=== PATIENT | female | born 1945 | race Caucasian/White ===

== ENCOUNTER 2020-11-26 15:20 | Inpatient (IN) | payer OTHER ==
[2020-11-26 17:44] LABS: Urine Blood Negative (Negative); Urine Glucose Negative (Negative); Urine Protein 1+ (Negative); Urine Specific Gravity 1.015 (1.005-1.030)
--- NOTE | 2020-11-26 18:23 | RAD REPORT ---
EXAM DESCRIPTION: Kierra Single View11/26/2020 6:14 pm CLINICAL HISTORY: Cough COMPARISON: none FINDINGS: The lungs appear clear of acute infiltrate. The heart is normal size IMPRESSION: No acute abnormalities displayed
[2020-11-26 18:33] LABS: Absolute Lymphocytes (CBC) 0.2 K/uL (0.7-4.9); Basophils % 0.5 % (0-1.3); Hematocrit 37.1 % (36.0-45.0); Lymphocytes % 1.6 % (15.3-44.8); MPV 7.5 fL (7.6-11.3); RBC Red Blood Cell Count 3.91 M/uL (3.86-4.86)
[2020-11-26 19:11] LABS: Blood Morphology Comment NOT SEEN (NOT SEEN); Platelet Estimate ADEQ; White Blood Cell Scan OK (OK)
[2020-11-26 19:24] LABS: Urine Bacteria >50 /HPF (<20); Urine RBC <5 /HPF (NONE SEEN)
[2020-11-26 19:29] LABS: ALT/SGPT 186 U/L (12-78); AST/SGOT 145 U/L (15-37); Albumin 3.5 g/dL (3.4-5.0); Alkaline Phosphatase 96 U/L (45-117); BUN Blood Urea Nitrogen 27 mg/dL (7-18); Bicarbonate 27 mmol/L (21-32); Bilirubin Direct 0.2 mg/dL (0-0.2); Bilirubin Total 0.5 mg/dL (0.2-1.0); Ferritin 378.5 ng/mL (8-388); Glucose Level 119 mg/dL (74-106); Lipase 119 U/L (73-393); Potassium 3.4 mmol/L (3.5-5.1); Protein, Total 7.7 g/dL (6.4-8.2); Sodium Level 138 mmol/L (136-145); Troponin (Emerg Dept Use Only) < 0.02 ng/mL (0.0-0.045)
--- NOTE | 2020-11-26 21:14 | RAD REPORT ---
EXAM DESCRIPTION: CT - Abdomen Pelvis W Contrast - 11/26/2020 8:59 pm CLINICAL HISTORY: Abdominal pain COMPARISON: none. TECHNIQUE: Computed axial tomography of the abdomen pelvis was obtained. 100 cc Isovue-300 was admin istered intravenously. Oral contrast was not requested which limits evaluation of bowel. All CT scans are performed using dose optimization technique as appropriate and may include automated exposure control or mA/KV adjustment according to patient size. FINDINGS: The liver, pancreas, adrenal and kidneys appear unremarkable. Splenic granulomata. There is no evidence of diverticulitis. Hysterectomy IMPRESSION: No acute abnormality is displayed.
--- NOTE | 2020-11-26 21:30 | ER ---
Nurse's Notes [facility] Name: Christal Mosley Age: 75 yrs Sex: Female : 1945 Arrival Date: 11/26/2020 Time: 15:23 Bed 28 Private MD: Diagnosis: Chest pain, unspecified;UTI/ Urinary tract infection, site not specified-failed outpatient therapy Presentation: 11/26 15:34 Chief complaint: Fever, SOB, headache, and intermittent fatiguesubsternal chest pain x hb 2 days. TMAX 101.3. Coronavirus screen: Client presents with at least one sign or symptom that may indicate coronavirus-19. Standard/surgical mask placed on the client. Provider contacted for isolation considerations. Ebola Screen: No symptoms or risks identified at this time. Initial Sepsis Screen: Does the patient meet any 2 criteria? No. Patient's initial sepsis screen is negative. Does the patient have a suspected source of infection? No. Patient's initial sepsis screen is negative. Risk Assessment: Do you want to hurt yourself or someone else? Patient reports no desire to harm self or others. Onset of symptoms was November 24, 2020. 15:34 Method Of Arrival: Wheelchair hb 15:34 Acuity: IGNACIO 3 hb Historical: - Allergies: 15:38 PENICILLINS; hb - Home Meds: 15:38 Lovastatin Oral [Active]; Premarin Oral [Active]; Diltiazem Oral [Active]; hb - PMHx: 15:38 Hypertentension; hb - Immunization history:: Client reports receiving the 2nd dose of the Covid vaccine, Flu vaccine is up to date. - Social history:: Smoking status: Patient denies any tobacco usage or history of. Screenin:09 Abuse screen: Denies threats or abuse. Denies injuries from another. Nutritional ld1 screening: No deficits noted. Tuberculosis screening: No symptoms or risk factors identified. Fall Risk None identified. Assessment: 17:09 General: Appears in no apparent distress. comfortable, Behavior is calm, cooperative, ld1 appropriate for age. Pain: Denies pain. Neuro: Level of Consciousness is awake, alert, obeys commands, Oriented to person, place, time, situation. Cardiovascular: Capillary refill < 3 seconds Patient's skin is warm and dry. Respiratory: Airway is patent Respiratory effort is even, unlabored, Respiratory pattern is regular, symmetrical. Respiratory: Parent/caregiver reports the patient having shortness of breath on exertion. GI: Abdomen is flat, non-distended. : Reports burning with urination, since x 3 DAYS. Began on 11/23/2020. EENT: No signs and/or symptoms were reported regarding the EENT system. Derm: No signs and/or symptoms reported regarding the dermatologic system. Musculoskeletal: No signs and/or symptoms reported regarding the musculoskeletal system. 18:01 Reassessment: Patient appears in no apparent distress at this time. Patient is alert, ld1 oriented x 3, equal unlabored respirations, skin warm/dry/pink. Patient denies pain at this time. 21:24 Pain: kg Vital Signs: 15:34 BP 118 / 50; Pulse 88; Resp 28; Temp 99; Pulse Ox 98% on R/A; Pain 2/10; hb 17:09 BP 118 / 71; Pulse 68; Resp 18; Temp 98.7(O); Pulse Ox 98% on R/A; Weight 72.57 kg; ld1 Height 5 ft. 4 in. (162.56 cm); Pain 0/10; 18:01 BP 131 / 54; Pulse 71; Resp 15; Pulse Ox 100% on R/A; ld1 18:30 BP 120 / 49; Pulse 68; Resp 20; Pulse Ox 98% on R/A; kg 18:45 BP 120 / 49; Pulse 68; Resp 20; Pulse Ox 98% on R/A; kg 19:30 BP 112 / 53; Pulse 69; Resp 20; Pulse Ox 98% on R/A; kg 20:15 BP 114 / 55; Pulse 68; Resp 20; Pulse Ox 98% on R/A; kg 21:15 BP 100 / 51; Pulse 72; Resp 20; Pulse Ox 98% ; kg 17:09 Body Mass Index 27.46 (72.57 kg, 162.56 cm) ld1 ED Course: 15:23 Patient arrived in ED. rg4 15:37 Triage completed. hb 15:38 Arm band placed on. hb 16:55 Christi Maza, RN is Primary Nurse. ld1 17:09 Patient has correct armband on for positive identification. Placed in gown. Bed in low ld1 position. Call light in reach. Side rails up X2. equipment sterilizer on. Pulse ox on. NIBP on. 17:09 No provider procedures requiring assistance completed. Patient maintains SpO2 ld1 saturation greater than 95% on room air. 17:10 [facility] kb 17:10 Betito Poon MD is Attending Physician. kb 17:29 Flu Sent. 4 18:14 CXR XRAY In Process Unspecified. EDMS 20:59 CT Abd/Pelvis - IV Contrast Only In Process Unspecified. EDMS 21:29 Shelly Snow MD is Hospitalizing Provider. kb 11/27 02:14 BMP Sent. bs2 02:14 Blood Culture Adult (2) Sent. bs2 02:14 C-Reactive Protein Sent. bs2 02:14 CBC with Diff Sent. bs2 02:14 Ferritin Sent. bs2 02:14 Lipase Sent. bs2 02:14 Lactate Sent. bs2 02:14 LFT's Sent. bs2 Administered Medications: 11/26 22:09 Drug: Aspirin Chewable Tablet 324 mg Route: PO; kg 11/27 02:14 Follow up: Response: No adverse reaction bs2 11/26 22:09 Drug: Rocephin (cefTRIAXone) 1 grams Route: IV; Rate: calculated rate; Site: left kg antecubital; 11/27 02:13 Follow up: IV Status: Completed infusion bs2 Outcome: 11/26 21:30 Decision to Hospitalize by Provider. 11/27 16:20 Patient left the ED. jd3 Signatures: Dispatcher [employer] EDMS Sarah Mccann FNP-C FNP-Mayra Cortez RN RN Ginger Chaudhari 4 Gurdeep Webster RN RN cad3 Naeem Lobo [facility] Christi Maza RN RN ld1 Elis Vinson RN RN kg Smith, Bridget RN RN bs2 Corrections: (The following items were deleted from the chart) 11/26 18:18 17:29 CORONAVIRUS+ drawn and sent. formerly [facility] EDID
--- NOTE | 2020-11-26 21:30 | EDPHYS ---
Physician Documentation [facility] Name: Christal Mosley Age: 75 yrs Sex: Female : 1945 Arrival Date: 11/26/2020 Time: 15:23 Bed 28 Private MD: ANGELIKA Physician Betito Poon HPI: 11/26 23:49 This 75 yrs old Female presents to ER via Wheelchair with complaints of kb Fever, Chest Pain, Fatigue. 23:49 The patient or guardian reports cough, that is intermittent, described as mild, with no kb sputum, difficulty breathing, flu symptoms, low-grade fever, myalgias. Onset: The symptoms/episode began/occurred 2 day(s) ago. Severity of symptoms: At their worst the symptoms were moderate, in the emergency department the symptoms are unchanged. Modifying factors: The symptoms are alleviated by nothing, the symptoms are aggravated by nothing. Associated signs and symptoms: Pertinent positives: chest pain, fever, Pertinent negatives: diarrhea, ear ache, nausea, rhinorrhea, sore throat, vomiting. The patient has not experienced similar symptoms in the past. The patient has not recently seen a physician. 23:52 Patient reports fever shortness of breath headache and fatigue for 2 days. This morning kb he had chest pain which prompted her ER visit. Reports she is also had burning with urination and urinary frequency since Monday. Had urine tested at Dr. Green's office on Monday started on Macrobid for UTI, but symptoms not improving.. Historical: - Allergies: 15:38 PENICILLINS; hb - Home Meds: 15:38 Lovastatin Oral [Active]; Premarin Oral [Active]; Diltiazem Oral [Active]; hb - PMHx: 15:38 Hypertentension; hb - Immunization history:: Client reports receiving the 2nd dose of the Covid vaccine, Flu vaccine is up to date. - Social history:: Smoking status: Patient denies any tobacco usage or history of. ROS: 23:47 Neuro: Negative for headache, weakness, numbness, tingling, and seizure. kb 23:47 Constitutional: Positive for body aches, chills, fatigue, fever, malaise. 23:47 Cardiovascular: Positive for chest pain, Negative for edema, orthopnea, palpitations, paroxysmal nocturnal dyspnea. 23:47 Respiratory: Positive for cough, shortness of breath, Negative for dyspnea on exertion, hemoptysis, orthopnea, pleurisy, sputum production, wheezing. 23:47 Abdomen/GI: Positive for abdominal pain, of the suprapubic area. 23:47 : Positive for urinary frequency, burning with urination. 23:47 All other systems are negative. Exam: 23:49 Constitutional: This is a well developed, well nourished patient who is awake, alert, kb and in no acute distress. Head/Face: Normocephalic, atraumatic. ENT: Moist Mucous membranes Cardiovascular: Regular rate and rhythm with a normal S1 and S2. No gallops, murmurs, or rubs. No pulse deficits. Respiratory: Respirations even and unlabored. No increased work of breathing, no retractions or nasal flaring. Abdomen/GI: Soft, non-tender. No distention Skin: Warm, dry with normal turgor. Normal color. MS/ Extremity: Pulses equal, no cyanosis. Neurovascular intact. Full, normal range of motion. Neuro: Awake and alert, GCS 15, oriented to person, place, time, and situation. Moves all extremities. Normal gait. Psych: Awake, alert, with orientation to person, place and time. Behavior, mood, and affect are within normal limits. Vital Signs: 15:34 BP 118 / 50; Pulse 88; Resp 28; Temp 99; Pulse Ox 98% on R/A; Pain 2/10; hb 17:09 BP 118 / 71; Pulse 68; Resp 18; Temp 98.7(O); Pulse Ox 98% on R/A; Weight 72.57 kg; ld1 Height 5 ft. 4 in. (162.56 cm); Pain 0/10; 18:01 BP 131 / 54; Pulse 71; Resp 15; Pulse Ox 100% on R/A; ld1 18:30 BP 120 / 49; Pulse 68; Resp 20; Pulse Ox 98% on R/A; kg 18:45 BP 120 / 49; Pulse 68; Resp 20; Pulse Ox 98% on R/A; kg 19:30 BP 112 / 53; Pulse 69; Resp 20; Pulse Ox 98% on R/A; kg 20:15 BP 114 / 55; Pulse 68; Resp 20; Pulse Ox 98% on R/A; kg 21:15 BP 100 / 51; Pulse 72; Resp 20; Pulse Ox 98% ; kg 17:09 Body Mass Index 27.46 (72.57 kg, 162.56 cm) ld1 MDM: 17:10 Patient medically screened. kb 22:55 Data reviewed: vital signs, nurses notes. Data interpreted: Pulse oximetry: on room air kb is 98 %. Interpretation: normal. Counseling: I had a detailed discussion with the patient and/or guardian regarding: the historical points, exam findings, and any diagnostic results supporting the discharge/admit diagnosis, lab results, radiology results, the need for further work-up and treatment in the hospital. Physician consultation: Richard Snow MD was contacted at 21:30, regarding admission, to the telemetry unit. patient's condition, and will see patient in inpatient room. 11/26 17:17 Order name: Flu; Complete Time: 18:25 kb 11/26 17:18 Order name: BMP 11/26 17:18 Order name: Blood Culture Adult (2) 11/26 17:18 Order name: C-Reactive Protein 11/26 17:18 Order name: CBC with Diff 11/26 17:18 Order name: Ferritin 11/26 17:18 Order name: LFT's 11/26 17:18 Order name: Lactate 11/26 17:18 Order name: Lipase 11/26 17:18 Order name: PT-INR; Complete Time: 18:42 kb 11/26 17:18 Order name: Procalcitonin; Complete Time: 19:26 kb 11/26 17:18 Order name: Ptt, Activated; Complete Time: 18:42 kb 11/26 17:18 Order name: Troponin (emerg Dept Use Only); Complete Time: 19:30 kb 11/26 17:18 Order name: Urine Microscopic Only; Complete Time: 19:26 kb 11/26 17:19 Order name: Basic Metabolic Panel; Complete Time: 19:30 EDMS 11/26 17:19 Order name: Blood Culture EDNM 11/26 17:19 Order name: C-Reactive Protein; Complete Time: 19:30 EDMS 11/26 17:19 Order name: CBC with Automated Diff; Complete Time: 19:26 EDMS 11/26 17:19 Order name: Ferritin; Complete Time: 19:30 EDMS 11/26 17:19 Order name: Liver (Hepatic) Function; Complete Time: 19:30 EDMS 11/26 17:19 Order name: Lactate; Complete Time: 18:35 EDMS 11/26 17:19 Order name: Lipase; Complete Time: 19:30 EDMS 11/26 17:44 Order name: Urine Dipstick-Ancillary; Complete Time: 17:52 EDMS 11/26 19:11 Order name: CBC Smear Scan EDMS 11/26 19:19 Order name: SARS-COV-2 RT PCR; Complete Time: 19:26 EDMS 11/26 19:25 Order name: Urine Culture EDMS 11/27 00:33 Order name: Troponin I; Complete Time: 00:36 EDMS 11/27 05:23 Order name: Troponin I; Complete Time: 13:25 EDMS 11/27 05:24 Order name: CBC with Automated Diff; Complete Time: 13:25 EDMS 11/26 15:39 Order name: EKG; Complete Time: 15:40 hb 11/26 15:39 Order name: EKG - Nurse/Tech; Complete Time: 15:39 hb 11/26 17:18 Order name: CXR XRAY; Complete Time: 18:25 kb 11/26 17:18 Order name: Cardiac monitoring; Complete Time: 17:21 kb 11/26 17:18 Order name: Droplet/Contact Precautions; Complete Time: 17:21 kb 11/26 17:18 Order name: IV Start; Complete Time: 18:00 kb 11/26 17:18 Order name: Labs collected and sent; Complete Time: 18:00 kb 11/26 17:18 Order name: O2 Per Protocol; Complete Time: 17:21 kb 11/26 17:18 Order name: O2 Sat Monitoring; Complete Time: 17:21 kb 11/26 17:18 Order name: Urine Dipstick-Ancillary (obtain specimen); Complete Time: 17:44 kb 11/26 20:32 Order name: CT Abd/Pelvis - IV Contrast Only; Complete Time: 21:18 kb 11/27 05:44 Order name: Basic Metabolic Panel; Complete Time: 13:25 EDMS 11/27 08:11 Order name: Liver (Hepatic) Function; Complete Time: 13:25 EDMS Administered Medications: 22:09 Drug: Aspirin Chewable Tablet 324 mg Route: PO; kg 11/27 02:14 Follow up: Response: No adverse reaction bs2 11/26 22:09 Drug: Rocephin (cefTRIAXone) 1 grams Route: IV; Rate: calculated rate; Site: left kg antecubital; 11/27 02:13 Follow up: IV Status: Completed infusion bs2 Disposition Summary: 11/26/20 21:30 Hospitalization Ordered Hospitalization Status: Inpatient Admission kb Provider: Shelly Snow Condition: Stable kb Problem: new kb Symptoms: are unchanged kb Bed/Room Type: Standard kb Location: Telemetry/MedSurg (Inpatient)(11/27/20 15:29) eb Room Assignment: 224(11/27/20 15:29) eb Diagnosis - Chest pain, unspecified kb - UTI/ Urinary tract infection, site not specified - failed outpatient therapy kb Forms: - Medication Reconciliation Form kb - SBAR form kb Addendum: 11/29/2020 06:56 Co-signature as Attending Physician, Betito Poon MD I agree with the assessment and c jordan plan of care. Signatures: Dispatcher [employer] EDNM Sarah Mccann, THIRD LOADER-C THIRD LOADER-Ckb Betito Poon MD MD cha Garcia, Cindy, RN RN cg Mayra Hamilton, RN RN Maryan Estrella Kristen, JESUS RN Gabriela Lawson RN bs2 Corrections: (The following items were deleted from the chart) 11/26 18:18 17:11 CORONAVIRUS+BRZ ordered. EDNM EDNM 22:15 21:30 Telemetry/MedSurg (Inpatient) kb cg 22:15 21:30 kb cg 11/27 15:29 11/26 22:15 [facility] ER HOLD cg eb 11/27 15:29 11/26 22:15 ERHOLD- cg eb
[2020-11-26] MEDS ORDERED: ASPIRIN 81 MG CHEWABLE TABLET ONE (22:24)
[2020-11-26] MEDS ORDERED: CEFTRIAXONE/SWI 1gm 1 GM/10 ML SYR ONE (22:25)
[2020-11-26] MEDS ORDERED: ACETAMINOPHEN 500 MG TAB PO PRN (22:25)
[2020-11-27 05:10] LABS: Absolute Lymphocytes (CBC) 0.4 K/uL (0.7-4.9); Basophils % 0.3 % (0-1.3); Hematocrit 31.9 % (36.0-45.0); MPV 7.3 fL (7.6-11.3); RBC Red Blood Cell Count 3.38 M/uL (3.86-4.86)
[2020-11-27 05:16] LABS: Potassium 3.7 mmol/L (3.5-5.1)
[2020-11-27 05:21] VITALS: BMI 17.2
[2020-11-27 08:08] LABS: ALT/SGPT 155 U/L (12-78); AST/SGOT 108 U/L (15-37); Albumin 2.8 g/dL (3.4-5.0); Alkaline Phosphatase 78 U/L (45-117); Bilirubin Direct < 0.1 mg/dL (0-0.2); Bilirubin Total 0.2 mg/dL (0.2-1.0); Protein, Total 6.5 g/dL (6.4-8.2)
[2020-11-27] MEDS: ASPIRIN EC 81 MG TAB PO SCH (09:00)
[2020-11-27] MEDS ORDERED: CEFTRIAXONE 1 GM/NS 50 ML 1 GM/50 ML BAG IV SCH (09:00)
[2020-11-27] MEDS: CEFTRIAXONE/SWI 1gm 1 GM/10 ML SYR IV SCH ×2 (09:00→20:46)
[2020-11-27] MEDS: NA CHLORIDE 0.9% 1,000 ML IV SCH ×2 (09:25→18:49)
[2020-11-27] MEDS ORDERED: NA CHLORIDE 0.9% 50 ML ONE (09:27)
[2020-11-27] MEDS ORDERED: CEFTRIAXONE/SWI 1gm 1 GM/10 ML SYR ONE (09:27)
[2020-11-27] MEDS ORDERED: ASPIRIN EC 81 MG TAB PO ONE (09:27)
[2020-11-27] MEDS ORDERED: NA CHLORIDE 0.9% 1,000 ML ONE (09:27)
[2020-11-27 21:33] VITALS: O2SAT 95
[2020-11-28] MEDS: NA CHLORIDE 0.9% 1,000 ML IV SCH (06:46)
[2020-11-28 08:12] VITALS: BP 127/60; TEMP 97.9
[2020-11-28] MEDS: CEFTRIAXONE/SWI 1gm 1 GM/10 ML SYR IV SCH (09:22)
[2020-11-28] MEDS: ASPIRIN EC 81 MG TAB PO SCH (09:22)
--- NOTE | 2020-11-28 11:15 | DS ---
Date of Discharge: 11/28/2020 Disposition: Discharged to go home. Physical Examination: HEENT: Unremarkable. LUNGS: Clear to auscultation. HEART: Heart sounds normal. ABDOMEN: Soft. Bowel sounds normal. No guarding, rigidity, tenderness, or distention. There is no flank tenderness. EXTREMITIES: No leg edema. Discharge Medications And Instructions: 1.Continue all prior home medications. 2.Take Levaquin 500 mg daily for 2 weeks. 3.Follow up at my office on 12/02/2020 at 9 a.m. Final Diagnoses: 1.Acute pyelonephritis. 2.Hypertension. 3.Hyperlipidemia. Hospital Course: This is a 75-year-old female patient, admitted to the hospital with acute pyeloneph ritis problem. Please see dictated H and P for more information. After patient was evaluated in the ER, she was admitted to the hospital. Empiric antibiotic ceftriaxone was started. The patient fail ed outpatient antibiotic therapy and her symptoms got worse, so she was admitted to the hospital afte r she was evaluated in the emergency room. Her blood culture remained negative. Urine culture has n ot grown any specific bacteria so far and I did talk to her about all these details and information. There is a good possibility that her culture may not grow any specific bacteria because she was on a ntibiotic therapy as outpatient prior to her admission to the hospital, even though it did not take c are of her infection it may mass the growth on the culture. Clinically, she is feeling much better, does not have any pain in the flank region like what she did when she came in, had left posterior fla nk pain and tenderness that has resolved completely. Does not have any dysuria or hematuria. Has a good appetite. She is afebrile, hemodynamically stable, and tells me that she is ready to go home. Medically, she is stable for discharge and I did inform her that I will continue to follow up on the urine culture results. If something grows that may require change in the antibiotic therapy, then we will need to contact her and she understands that. ANIBAL/MODL Voice ID: [id number] Report ID: [id number]
--- NOTE | 2020-11-30 08:30 | HP ---
Date of Admission: 11/26/2020 Chief Complaint: Fever, chills, chest pain. History Of Present Illness: This is a 75-year-old very pleasant female patient, who started to have urinary frequency, urgency, and burning on urination Monday of this week and she went to see her gyne cologist, Dr. Green. She had urinalysis test done at her office and she was started on antibiotic on Monday and she says that as of next day, she started to have fever, chills. Her symptoms continu ed and she continued to use antibiotic as prescribed, but was not improving and yesterday, she had so me chest pain and she was advised to come to emergency room. After she was evaluated in the ER, she was admitted to the hospital. When I saw her this morning, she was still in the emergency room and w jessica she describes as chest pain, the location of that is all across upper abdominal area, lower rib c age area. The patient's pain has resolved after her presentation to the emergency room. Allergies: TO PENICILLIN. Medications: Aspirin 81 mg daily, Caltrate plus D 2 times a day, Prolia injection every 6 month, Car dizem CD 240 mg p.o. daily, losartan 25 mg p.o. daily, lovastatin 20 mg p.o. daily in the evening, ma gnesium oxide 250 mg p.o. daily. Review of Systems: Constitutional: As mentioned above. Genitourinary: As mentioned above. All other systems reviewed and negative. Past Medical History: Significant for impaired fasting glucose, hypertension, hyperlipidemia, caroti d artery stenosis, bilateral diverticulosis, osteoporosis. Past Surgical History: Tonsillectomy and hysterectomy. Family History: Father had lung cancer and problem with alcoholism. Mother hypertension, rheumatoid arthritis, and lupus. Social History: Negative for smoking and alcohol use. Physical Examination: Vital Signs: Temperature 97.9, pulse 61, respiratory rate 14, blood pressure 102/57, oxygen saturati on 98%. Height 5 feet 4 inches. Weight 100 pounds. General: Awake, alert, oriented, not in distress. HEENT: Head atraumatic, normocephalic. Conjunctivae nonerythematous. Sclerae white. Mouth, no thr ush or edema noted. Ears/Nose, no mass, lesion, discharge noted. Neck: Supple. No JVD, lymph nodes, bruit, thyromegaly noted. Lungs: Bilateral good equal air entry. Clear to auscultation. No rhonchi. No rales. Heart: Normal heart sounds, no murmur or gallop. Abdomen: Soft, bowel sounds normal. No guarding, rigidity, distention. No hepatosplenomegaly. No bruit. The patient does have left posterior flank tenderness. Extremities: No leg edema. No calf tenderness. Skin: No rash, ulcer, cellulitis. Lymphatics: No lymph node enlargement in neck, supraclavicular, infraclavicular region. Neuro: No focal neurological deficit. Chest: Unremarkable. External Genitalia: Deferred. Rectal: Deferred. Laboratory Data: White count 12.8, hemoglobin 12.6, platelets 185, and this was yesterday's blood wo rk. Today, white count 6.3, hemoglobin 11.1, platelets 161. Yesterday, sodium 138, potassium 3.4, c hloride 101, bicarb 27, BUN 27, creatinine 0.89, glucose 119, lactic acid 1.7, procalcitonin 0.63. L iver function tests, AST 145, ALT 186. Troponin less than 0.02. CRP 184. Urinalysis; trace leukocy te esterase 20-50, wbc's more than 50, more than 50 bacteria, and 1+ protein. COVID-19 test negative . Influenza A and B test negative. Today, sodium 141, potassium 3.7, chloride 107, bicarb 24, BUN 0 .7, glucose 96. CAT scan of the abdomen and pelvis, no acute intra-abdominal changes. Chest x-ray, no acute cardiopulmonary changes. Impression: 1.Acute pyelonephritis. 2.Hypokalemia. 3.Anemia, unspecified. 4.Hypertension. 5.Hyperlipidemia. 6.Impaired fasting glucose. 7.Diverticulosis. 8.Osteoporosis. Plan: Admit the patient to hospital for further evaluation and management of this problem. The shelly ent is appropriate for inpatient and is expected to spend 2 midnight in hospital. We will go ahead a nd continue IV fluid as per order. Continue patient on antibiotics, ceftriaxone, which was started i n emergency room. We will continue that. We will follow up on culture results. Culture may or may not grow any specific bacteria because patient was already taking oral antibiotics on outpatient basi s. Details and plan of treatment discussed with the patient. Her liver function tests were elevated yesterday. We will follow up on that again today. ANIBAL/FARHAN Voice ID: [id number]
--- NOTE | 2020-12-01 12:43 | EKG ---
Test Date: 2020-11-26 Test Time: 23:57:31 Body Masker: LIZETH MEASUREMENT RESULTS: Intervals: Rate: 62 WV: 168 QRSD: 68 QT: 420 QTc: 426 [place]: P: 73 WV: 168 QRS: 67 T: 69 INTERPRETIVE STATEMENTS: Normal sinus rhythm Normal ECG Compared to ECG 11/26/2020 15:41:46 No significant changes Electronically Signed On 12-01-20 12:38:07 CDT by César Love
== END 2020-11-28 11:17 | disposition home or self-care (01) | DRG 690 ==
LOC: ER 15:20 → ERHOLD 22:07 → 2ND 11-27 15:40
PROVIDERS: ADMIT Internal Medicine; ATTEND Internal Medicine
DX: N10 Acute pyelonephritis (principal); I10 Essential (primary) hypertension; E78.5 Hyperlipidemia, unspecified; E87.6 Hypokalemia; D64.9 Anemia, unspecified; K57.90 Diverticulosis of intestine, part unspecified, without perforation or abscess without bleeding; M81.0 Age-related osteoporosis without current pathological fracture; R79.89 Other specified abnormal findings of blood chemistry; R73.01 Impaired fasting glucose; Z88.0 Allergy status to penicillin; Z79.899 Other long term (current) drug therapy; Z90.710 Acquired absence of both cervix and uterus; Z79.82 Long term (current) use of aspirin; Z20.822 Contact with and (suspected) exposure to COVID-19
CPT/HCPCS: 36415; 71045; 74177; 80048; 80076; 81001; 81003; 81015; 82728; 83605; 83690; 84145; 84484; 85025; 85610; 85730; 86140; 87040; 87077; 87086; 87088; 87186; 87804; 93005; 96365; 96366; 99285; J0696; J7030; U0003

== ENCOUNTER 2024-08-27 08:15 | Observation (INO) | payer OTHER ==
--- OUTSIDE RECORDS SUMMARY | 2024-08-27 08:20 | XMS REPORT | Continuity of Care Document ---
Author Name Unknown Address [address] [facility] [address] [place] [address] [facility] Address [address] [place] [address] Care Team Providers Care Art Historian Name Role Phone PCP, PATIENT DOES NOT HAVE A Primary Care Physic alice Unavailable YOHAN DUKES Attending Clinician Unavail able Yohan Dukes MD Attending Clinician [phone] [email or web address] Attending Clinician Unavaila ble Vaccine, [facility] Attending Clinician Unavailable Grabiel Mendez DO Attending Clinician GRABIEL MENDEZ Attending Clinician Unavail able Nurse, Awais Pob Immunization Attending Clinician Unavailable SAM HART Attending Clinician Unavailable Therapy, [facility] Covid Infusion Attending Clinician Unavailable Sam Hart MD Attending Clinician [phone] Doctor Unassigned, Mena Attending Clinician U navailable [email or web address] Admitting Clinician Unavaila ble Payers Payer Name Policy Type Policy Number Effective Date Expirati on Date Source [facility] MEDICARE ADVANTAGE Medicare [id number] 2023 00:00:00 [facility] (MEDICARE REPLACEMENT/ADVANTA GE - PPO) [id number] Problems Condition Name Condition Details Condition Category Status Onset Date Resolution Date Last Treatment Date Treating Clinician Comments Source Parkinson' s disease Parkinson' s Disease Problem Active 06-03 00:00: 00 [facility] Arthritis Arthritis Problem Active 06-03 00:00: 00 [facility] Osteoporos is Osteoporos is Problem Active 06-03 00:00: 00 [facility] MCI (mild cognitive impairment ) MCI (mild cognitive impairment ) Disease Active 12-12 00:00: 00 [facility] Anxiety Anxiety Disease Active 10-23 00:00: 00 [facility] 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 Active 10-23 00:00: 00 [facility] 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 00:00: 00 [facility] Hyperlipid emia Hyperlipid emia Disease Active 10-23 00:00: 00 [facility] Lumbar radiculopa thy Lumbar radiculopa thy Disease Active 10-23 00:00: 00 [facility] Amnesia Amnesia Disease Active 10-23 00:00: 00 [facility] Hypertensi on Hypertensi on Disease Active 10-23 00:00: 00 [facility] Screening mammograph y Screening Mammograph y Problem Active 05-19 00:00: 00 [facility] Screening for malignant neoplasm of colon Screening for Malignant Neoplasm of Colon Problem Active 05-19 00:00: 00 [facility] Urinary tract infectious disease Urinary Tract Infectious Disease Problem Active 02-01 00:00: 00 [facility] Lateral cystocele Lateral Cystocele Problem Active 06-29 00:00: 00 [facility] Atrophic vaginitis Atrophic Vaginitis Problem Active 06-29 00:00: 00 [facility] Bone density finding Bone Density Finding Problem Active 06-29 00:00: 00 [facility] Gynecologi nalini examinatio n abnormal Gynecologi nalini Examinatio n Abnormal Problem Active 06-29 00:00: 00 [facility] R41.3 - OTHER AMNESIA R27 - OTHER LACK O R41.3 - OTHER AMNESIA R27 - OTHER LACK O Active [facility] [place] Diagnosis Active 2023-07-24 15:20:00 Reinier Romero M54.16 - RADICULOPA THY, LUMBAR REGION R4 M54.16 - RADICULOPA THY, LUMBAR REGION R4 Active [facility] [place] Diagnosis Active 2023-08-22 13:25:00 Reinier Romero Abnormal gynecologi nalini examinatio n Abnormal gynecologi nalini examinatio n Disease Resolve d 06-28 00:00: 00 2024-03-05 00:00:00 2024-03-05 11:00:36 Reinier Hayes Allergies, Adverse Reactions, Alerts Allergy Name Allergy Type Status Severity Reaction(s) Onset Date Inactive Date Treating Clinician Comments Source PENICILL INS Drug Class Active Hives 01-30 00:00: 00 [facility] Penicill ins Propensi ty to adverse reaction s Active Hives 01-30 00:00: 00 [facility] Penicill ins Drug Intolera nce Active Hives, Rash 01-30 00:00: 00 Reinier Hayes PENICILL INS Drug Class Active Low Hives 01-30 00:00: 00 [facility] NO KNOWN ALLERGIE S Drug Class Active [facility] ALLERGIE S NOT ON FILE SYSTEMIC Active [facility] penicill in G benzathi ne penicill in G benzathi ne Active Skin irritation (disorder) Reinier Romero PENICILL IN Allergy to substanc e Active Hives [facility] Social History Social Habit Start Date Stop Date Quantity Comments Source Gender identity 2023-07-29 08:19:42 Identifies as female gender (finding) Beverly Hayes Sexual orientation [facility] ASSERTION Possible Beverly Hayes Alcoholic beverage intake 2024-06-04 00:00:00 2024-06-04 00:00:00 Lifetime non-drinker (finding) Beverly Hayes History of Social function 2024-06-04 00:00:00 2024-06-04 00:00:00 [facility] Tobacco use and exposure 2024-03-05 00:00:00 2024-03-05 00:00:00 Smokeless tobacco non-user [facility] Cigarettes smoked current (pack per day) - Reported 2024-03-05 00:00:00 2024-03-05 00:00:00 [facility] Cigarette pack-years 2024-03-05 00:00:00 2024-03-05 00:00:00 [facility] History of tobacco use 1967-09-06 00:00:00 Passive smoker [facility] Sex Assigned At 1945 00:00:00 1945 00:00:00 [facility] Smoking Status Start Date Stop Date Source Unknown if ever smoked [facility] Never Smoker [facility] Ex-smoker 2024-03-05 00:00:00 2024-03-05 00:00:00 [facility] Medications Ordered Medication Name Filled Medication Name Start Date Stop Date Current Medication? Ordering Clinician Indication Dosage Frequency Signature (SIG) Comments Components Source rivastigmin e (Exelon) 9.5 MG/24HR rivastigmin e (Exelon) 9.5 MG/24HR 06-04 00:00: 00 06-04 23:59 :00 No 1{patch } QD Place 1 patch over 24 hours on the skin 1 time each day. [facility] guru [place] [facility] mirtazapine (Remeron) 15 MG tablet mirtazapine (Remeron) 15 MG tablet 2023-05 2-30 00:00: 00 Yes [id number] 15mg TAKE 1 TABLET BY MOUTH EVERYDAY AT BEDTIME [facility] rivastigmin e (Exelon) 4.6 MG/24HR rivastigmin e (Exelon) 4.6 MG/24HR 2023-05 1-20 00:00: 00 06-04 00:00 :00 No 1{patch } QD PLACE 1 PATCH OVER 24 HOURS ON THE SKIN 1 TIME EACH DAY. [facility] rivastigmin e (Exelon) 4.6 MG/24HR rivastigmin e (Exelon) 4.6 MG/24HR 2023-05 0 00:00: 00 03-27 00:00 :00 No 1{patch } QD Place 1 patch over 24 hours on the skin 1 time each day. Reinier Hayes rivastigmin e 4.6 mg/24 hour transdermal patch rivastigmin e 4.6 mg/24 hour transdermal patch 8 00:00: 00 No rivastigmi ne 4.6 mg/24 hour transderma l patch [facility] galantamine ER (Razadyne ER) 8 MG 24 hr capsule galantamine ER (Razadyne ER) 8 MG 24 hr capsule 7-13 00:00: 00 03-05 00:00 :00 No 8mg TAKE 1 CAPSULE BY MOUTH AT BEDTIME Reinier Hayes mirtazapine (Remeron) 15 MG tablet mirtazapine (Remeron) 15 MG tablet 11-15 00:00: 00 05-06 00:00 :00 No [id number] 15mg TAKE 1 TABLET BY MOUTH EVERYDAY AT BEDTIME Reinier Hayes cholecalcif juni (Vitamin D-3) 50 MCG (2000 UT) tablet cholecalcif juni (Vitamin D-3) 50 MCG (2000 UT) tablet 10-23 11:57: 06 Yes 2000U QD Take 2,000 Units by mouth 1 time each day. Reinier Hayes Estrogens Conjugated (Premarin) 0.625 MG/GM cream cream Estrogens Conjugated (Premarin) 0.625 MG/GM cream cream 10-23 11:57: 06 Yes QD Insert into the vagina 1 time each day. Reinier Hayes Multiple Vitamin (multivitam in) capsule Multiple Vitamin (multivitam in) capsule 10-23 11:57: 06 Yes 1{capsu le} QD Take 1 capsule by mouth 1 time each day. Reinier Hayes lovastatin (Mevacor) 10 MG tablet lovastatin (Mevacor) 10 MG tablet 10-23 11:57: 06 Yes 10mg Take 10 mg by mouth at bedtime. Reinier Hayes [facility] ([facility]) [facility]) 10-23 11:57: 06 03-05 00:00 :00 No 1{capsu le} QD Take 1 capsule by mouth 1 time each day. [facility] mirtazapine (Remeron) 15 MG tablet mirtazapine (Remeron) 15 MG tablet 10-23 00:00: 00 11-15 00:00 :00 No [id number] 15mg Take 1 tablet by mouth at bedtime. [facility] g[facility] Epic galantamine (Razadyne) 4 MG tablet galantamine (Razadyne) 4 MG tablet 10-17 00:00: 00 10-23 00:00 :00 No 4mg Q.5D TAKE 1 TABLET BY MOUTH TWICE A DAY FOR 30 DAYS [facility] guru [place] Epic galantamine 8 mg oral capsule, extended release 08-23 16:59: 00 Yes 8 mg = 1 cap, PO, Bedtime, # 30 cap, 3 Refill(s), Pharmacy: [id number], 154.94, cm, 08/24/23 11:37:00 CDT, Height, 46.818, kg, 08/24/23 11:37:00 CDT, Weight Jamirtorrey Romero Razadyne 4 mg oral tablet 07-26 20:02: 00 Yes 4 mg = 1 tab, PO, BID, # 60 tab, 3 Refill(s), Pharmacy: [id number], 154.94, cm, 07/27/23 13:55:00 CDT, Height, 47.727, kg, 07/27/23 14:03:00 CDT, Weight Jamirt[facility] guru Romero Premarin 19:48: 00 Yes PO, Daily, 0 Refill(s) Reinier Romero diltiazem 19:48: 00 Yes 0 Refill(s) Reinier garvey [place] aspirin 81 mg oral capsule 19:48: 00 Yes 81 mg = 1 cap, PO, Daily, 0 Refill(s) Reinier Romero Vitamin D3 19:48: 00 Yes 0 Refill(s) [facility] magnesium carbonate 19:48: 00 Yes = 1 cap, PO, Daily, # 30 cap, 0 Refill(s) Memtorrey Romero Zinc 19:47: 00 Yes 140 mg, PO, Daily, 0 Refill(s) Memtorrey Romero Citracal 250 mg + D 19:46: 00 Yes PO, BID, 0 Refill(s) Memtor[facility] Romero Cranberry Fruit oral capsule 19:46: 00 Yes 0 Refill(s) Memtorrey Romero Probiotic Formula 19:46: 00 Yes PO, Daily, 0 Refill(s) Memtorrey Romero Vitamin C 19:46: 00 Yes Daily, 0 Refill(s) Memtorrey Romero multivitami n 19:46: 00 Yes 0 Refill(s) Memtorrey Romero Fish Oil 19:46: 00 Yes PO, 0 Refill(s) Reinier Romero losartan 25 mg oral tablet 19:45: 00 Yes 25 mg = 1 tab, PO, Daily, # 90 tab, 0 Refill(s) Memtorrey Romero lovastatin 20 mg oral tablet 19:38: 00 Yes 20 mg, PO, QPM, 0 Refill(s) Memtorrey garvey Nick Prolia 60 mg/mL subcutaneou s solution 19:38: 00 Yes 60 mg, SUB-Q, q6mo, 0 Refill(s) Memtorrey Bloomann denosumab (Prolia) 60 MG/ML solution prefilled syringe denosumab (Prolia) 60 MG/ML solution prefilled syringe 00:00: 00 Yes 60mg 60 mg, SUB-Q, q6mo, 0 Refill(s) Memtorrey garvey Nick Epic losartan (Cozaar) 25 MG tablet losartan (Cozaar) 25 MG tablet 00:00: 00 Yes 25mg 25 mg = 1 tab, PO, Daily, # 90 tab, 0 Refill(s) Reinier Romero [facility] aspirin (Vazalore) 81 MG capsule aspirin (Vazalore) 81 MG capsule 00:00: 00 Yes 81mg 81 mg = 1 cap, PO, Daily, 0 Refill(s) Reinier Romero [facility] lovastatin (Mevacor) 20 MG tablet lovastatin (Mevacor) 20 MG tablet 00:00: 00 10-23 00:00 :00 No 20mg 20 mg, PO, QPM, 0 Refill(s) Reinier Romero [facility] mirtazapine 15 mg tablet 1 tablet every 24 hours by oral route. mirtazapine 15 mg tablet 1 tablet every 24 hours by oral route. 05-22 00:00: 00 No 1 Q24H mirtazapin e 15 mg tablet 1 tablet every 24 hours by oral route. [facility] dilTIAZem CD (Cardizem CD) 240 MG 24 hr capsule dilTIAZem CD (Cardizem CD) 240 MG 24 hr capsule 2022-05 00:00: 00 Yes 240mg QD Take 240 mg by mouth 1 time each day. [facility] casirivimab -imdevimab (REGEN-COV (EUA)) injection 1,200 mg 01-30 16:45: 00 01-30 15:30 :00 No [id number] 1200mg 1,200 mg, Subcutaneo us, ONCE, 1 dose, On 01/30/21 at 1145, Routine [facility] aspirin aspirin No aspirin [facility] Citracal-D3 Maximum Plus Citracal-D3 Maximum Plus No Citracal-D 3 Maximum Plus [facility] diltiazem HCl diltiazem HCl No diltiazem HCl [facility] losartan potassium (bulk) losartan potassium (bulk) No losartan potassium (bulk) [facility] multivitami n multivitami n No multivitam in [facility] Prolia Prolia No Prolia [facility] Immunizations Ordered Immunization Name Filled Immunization Name Date Status Comments Source RSV-MAb RSV-MAb 2023-05-25 00:00:00 Completed [facility] SARS-COV-2 COVID-19 PFIZER PEG-SUCROSE VACCINE (VELEZ TOP) 2021-08-12 00:00:00 Completed [facility] Pfizer Velez Cap SARS-CoV-2 Pfizer Velez Cap SARS-CoV-2 2021-08-12 00:00:00 Completed [facility] SARS-COV-2 COVID-19 PFIZER VACCINE 2021-02-11 00:00:00 Completed [facility] SARS-COV-2 COVID-19 PFIZER VACCINE 2021-02-11 00:00:00 Completed [facility] Pfizer Purple Cap SARS-CoV-2 Pfizer Purple Cap SARS-CoV-2 2021-02-11 00:00:00 Completed [facility] SARS-COV-2 COVID-19 PFIZER VACCINE 2020-07-25 00:00:00 Completed [facility] SARS-COV-2 COVID-19 PFIZER VACCINE 2020-07-25 00:00:00 Completed [facility] SARS-COV-2 COVID-19 PFIZER VACCINE 2020-07-25 00:00:00 Completed [facility] SARS-COV-2 COVID-19 PFIZER VACCINE 2020-07-25 00:00:00 Completed [facility] Pfizer Purple Cap SARS-CoV-2 Pfizer Purple Cap SARS-CoV-2 2020-07-25 00:00:00 Completed [facility] SARS-COV-2 COVID-19 PFIZER VACCINE 2020-07-04 00:00:00 Completed [facility] SARS-COV-2 COVID-19 PFIZER VACCINE 2020-07-04 00:00:00 Completed [facility] SARS-COV-2 COVID-19 PFIZER VACCINE 2020-07-04 00:00:00 Completed [facility] SARS-COV-2 COVID-19 PFIZER VACCINE 2020-07-04 00:00:00 Completed [facility] Pfizer Purple Cap SARS-CoV-2 Pfizer Purple Cap SARS-CoV-2 2020-07-04 00:00:00 Completed [facility] palivizumab Unknown Completed [facility] [id number] boost Unknown Completed [facility] [id number] ER Unknown Completed [facility] Vital Signs Vital Name Observation Time Observation Value Comments S ource Systolic blood pressure 2024-06-04 10:52:00 120 mm[Hg] [facility] cardoza Epic Diastolic blood pressure 2024-06-04 10:52:00 44 mm[Hg] [facility] Heart rate 2024-06-04 10:52:00 57 /min [facility] Body temperature 2024-06-04 10:52:00 36.28 [facility] Respiratory rate 2024-06-04 10:52:00 16 /min [facility] Body height 2024-06-04 10:52:00 160 cm Jomar [facility] Body weight 2024-06-04 10:52:00 68.04 kg Jomar rial [place] Epic BMI 2024-06-04 10:52:00 26.57 kg/m2 Jomar rial [place] Epic Oxygen saturation in Arterial blood by Pulse oximetry 2024-06-04 10:52:00 99 /min [facility] Her cardoza [facility] Systolic blood pressure 2024-06-04 10:52:00 120 mm[Hg] [facility] Diastolic blood pressure 2024-06-04 10:52:00 44 mm[Hg] [facility] Heart rate 2024-06-04 10:52:00 57 /min Memor ial [facility] Body temperature 2024-06-04 10:52:00 36.28 [facility] Respiratory rate 2024-06-04 10:52:00 16 /min [facility] Body height 2024-06-04 10:52:00 160 cm [facility] Body weight 2024-06-04 10:52:00 68.04 [facility] BMI 2024-06-04 10:52:00 26.57 kg/m2 [facility] Oxygen saturation in Arterial blood by Pulse oximetry 2024-06-04 10:52:00 99 /min [facility] cardoza Epic BP Systolic 2024-06-03 00:00:00 121 mm[Hg] [facility] Body Weight 2024-06-03 00:00:00 102.4 [lb_av] [facility] BP Diastolic 2024-06-03 00:00:00 65 mm[Hg] [facility] Height 2024-06-03 00:00:00 64 [in_i] [facility] BMI (Body Mass Index) 2024-06-03 00:00:00 17.6 kg/m2 [facility] Body height 2024-03-05 11:09:00 160 cm Jomar rial Nick Epic Body weight 2024-03-05 11:09:00 46.085 kg Jomar jyothil [place] Epic BMI 2024-03-05 11:09:00 18.00 kg/m2 Jomar rial [place] Epic Oxygen saturation in Arterial blood by Pulse oximetry 2024-03-05 11:09:00 99 /min [facility] Epic Systolic blood pressure 2024-03-05 11:09:00 133 mm[Hg] [facility] Epic Diastolic blood pressure 2024-03-05 11:09:00 62 mm[Hg] [facility] Epic Heart rate 2024-03-05 11:09:00 65 /min Memor ial [place] Epic Body temperature 2024-03-05 11:09:00 36.61 [facility] Res[facility] rate 2024-03-05 11:09:00 16 /min [facility] Body height 2024-03-05 11:09:00 160 cm Jomar roel [place] Epic Body weight 2024-03-05 11:09:00 46.085 kg Jomarkenneth velasco [place] Epic BMI 2024-03-05 11:09:00 18.00 kg/m2 Jomar rial Nick Epic Oxygen saturation in Arterial blood by Pulse oximetry 2024-03-05 11:09:00 99 /min [facility] Epic Systolic blood pressure 2024-03-05 11:09:00 133 mm[Hg] [facility] Epic Diastolic blood pressure 2024-03-05 11:09:00 62 mm[Hg] [facility] Epic Heart rate 2024-03-05 11:09:00 65 /min Memor ial [place] Epic Body temperature 2024-03-05 11:09:00 36.61 Naima [facility] Epic Respiratory rate 2024-03-05 11:09:00 16 /min [facility] Systolic blood pressure 2023-12-13 11:01:00 120 mm[Hg] [facility] Epic Diastolic blood pressure 2023-12-13 11:01:00 61 mm[Hg] [facility] Epic Heart rate 2023-12-13 11:01:00 68 /min Memor ial [place] Epic Body temperature 2023-12-13 11:01:00 36.61 Naima [facility] Respiratory rate 2023-12-13 11:01:00 16 /min [facility] Body height 2023-12-13 11:01:00 157.5 cm Jomar rial [place] Epic Body weight 2023-12-13 11:01:00 47.174 kg Jomar rial Nick Epic BMI 2023-12-13 11:01:00 19.02 kg/m2 Jomar rial Nick Epic Oxygen saturation in Arterial blood by Pulse oximetry 2023-12-13 11:01:00 99 /min Beverly Valdez [facility] Systolic blood pressure 2023-12-13 11:01:00 120 mm[Hg] Beverly Valdez [facility] Diastolic blood pressure 2023-12-13 11:01:00 61 mm[Hg] Beverly Valdez [facility] Heart rate 2023-12-13 11:01:00 68 /min Memor ial Nick Epic Body temperature 2023-12-13 11:01:00 36.61 [facility] Respiratory rate 2023-12-13 11:01:00 16 /min [facility] Body height 2023-12-13 11:01:00 157.5 cm Jomar rial Nick [facility] Body weight 2023-12-13 11:01:00 47.174 kg Jomar rial [place] Epic BMI 2023-12-13 11:01:00 19.02 kg/m2 Jomar rial [place] Epic Oxygen saturation in Arterial blood by Pulse oximetry 2023-12-13 11:01:00 99 /min Beverly Valdez [facility] Systolic blood pressure 2023-10-24 11:44:00 127 mm[Hg] [facility] Diastolic blood pressure 2023-10-24 11:44:00 64 mm[Hg] [facility] Heart rate 2023-10-24 11:44:00 60 /min Memor ial Nick Epic Body temperature 2023-10-24 11:44:00 36.5 Naima [facility] Epic Respiratory rate 2023-10-24 11:44:00 16 /min [facility] Body height 2023-10-24 11:44:00 160 cm Jomar rial [place] Epic Body weight 2023-10-24 11:44:00 45.813 kg Jomar Bloomann Epic BMI 2023-10-24 11:44:00 17.89 kg/m2 Jomar Bloomann Epic Oxygen saturation in Arterial blood by Pulse oximetry 2023-10-24 11:44:00 99 /min [facility] Her cardoza Epic Systolic blood pressure 2023-10-24 11:44:00 127 mm[Hg] [facility] Her card[facility]za Epic Diastolic blood pressure 2023-10-24 11:44:00 64 mm[Hg] [facility] cardoza Epic Heart rate 2023-10-24 11:44:00 60 /min [facility] Body temperature 2023-10-24 11:44:00 36.5 Naima [facility] Epic Respiratory rate 2023-10-24 11:44:00 16 /min [facility] Body height 2023-10-24 11:44:00 160 cm Jomar Bloomann Epic Body weight 2023-10-24 11:44:00 45.813 kg Jomar Bloomann Epic BMI 2023-10-24 11:44:00 17.89 kg/m2 Jomar velasco Nick Epic Oxygen saturation in Arterial blood by Pulse oximetry 2023-10-24 11:44:00 99 /min [facility] Her cardoza [facility] Systolic blood pressure 2021-01-30 16:15:00 122 mm[Hg] [facility] Diastolic blood pressure 2021-01-30 16:15:00 52 mm[Hg] [facility] Heart rate 2021-01-30 16:15:00 76 /min [facility] Body [facility] 2021-01-30 16:15:00 36.22 Naima [facility] Respiratory rate 2021-01-30 16:15:00 19 /min [facility] Oxygen saturation in Arterial blood by Pulse oximetry 2021-01-30 16:15:00 95 /min [facility] Body height 2021-01-30 15:28:00 162.6 cm [facility] Body weight 2021-01-30 15:28:00 45.36 kg [facility] BMI 2021-01-30 15:28:00 17.16 kg/m2 [facility] Systolic (mm Hg) 2023-08-24 16:37:00 [facility] Di[facility] (mm Hg) 2023-08-24 16:37:00 [facility] [place] Heart Rate 2023-08-24 16:37:00 Memor ial [place] Height 2023-08-24 16:37:00 5 [ft_i] Mem[facility] ial [facility] Weight 2023-08-24 16:37:00 Memor ial Nick BMI Calculated 2023-08-24 16:37:00 [facility] 2023-07-27 18:55:00 5 [ft_i] Memor ial Nick Systolic (mm Hg) 2023-07-27 18:55:00 [facility] Diastolic (mm Hg) 2023-07-27 18:55:00 [facility] Heart Rate 2023-07-27 18:55:00 Memor ial [place] Weight 2023-07-27 18:55:00 Memor ial [place] BMI Calculated 2023-07-27 18:55:00 M [facility] Procedures Procedure Date / Time Performed Performing Clinician Source MAMMO, screening, digital, bilateral 2024-06-03 00:00:00 [facility] Pap Smear 2023-05-30 06:00:00 [facility] Mammogram 2022-11-02 05:00:00 [facility] Bone density scan 2022-04-07 06:00:00 [facility] SARS-COV-2 COVID-19 VACCINE 12 YRS+,0.3ML,IM (PFIZER - [facility]) 2021-08-12 21:43:56 Doctor Unassigned, [facility] SARS-COV-2 COVID-19 VACCINE,0.3ML,IM (PFIZER) 2021-02-11 18:53:51 Doctor Unassigned, [facility] [id number] CONSENT 2021-01-30 05:01:00 Doctor Unas signed, [facility] Procedure on Metatarsal 2016-12-14 00:00:00 [facility] Colonoscopy 2012-04-07 06:00:00 [facility] Total Abdominal Hysterectomy 1997-05-08 00:00:00 [facility] Tonsillectomy [facility] Encounters Start Date/Time End Date/Time Encounter Type Admission Type Attending [facility] Care Department Encounter ID Source 2024-06-04 10:19:42 2024-06-04 11:16:25 Outpatient YOHAN DUKES MHEOUT [id number] [facility] 2024-06-04 10:30:00 2024-06-04 10:45:00 Office Visit Yohan Dukes [id number] [facility]:00:00 2024-06-03 00:00:00 Henrietta Jerome, EMERGENCY SERVICE RESTORER: [address] [place], [place] [address], [place] [address] , Ph. [facility] - GC_[id number]_[facility]* [id number] [facility] 2024-05-05 00:00:00 2024-05-06 12:40:45 Refill Yohan Dukes [id number] Reinier garvey [facility] 2024-03-27 00:00:00 2024-03-27 09:47:31 Refill Yohan Dukes [id number] Reinier garvey [facility] [facility] 2024-03-05 11:00:00 2024-03-05 11:35:08 Office Visit Yohan Dukes 1.2.840.114 350.1.13.70 8.2.7.2.686 [id number] Reinier garvey [facility] 2024-03-05 10:38:56 2024-03-05 11:35:08 Outpatient YOHAN DUKES MHEOUT [id number] [facility] 2023-12-13 10:19:49 2023-12-13 11:27:18 Outpatient YOHAN DUKES ÁngelOUT EOUT [id number] EOUT 2023-12-13 10:45:00 2023-12-13 11:00:00 Office Visit Yohan Dukes 1.2.840.114 350.1.13.70 8.2.7.2.686 [id number] Reinier garvey [facility] 2023-11-17 00:00:00 2023-11-18 13:46:11 Refill Yohan Dukes 1.2.840.114 350.1.13.70 8.2.7.2.686 [id number] Reinier garvey [facility] 2023-11-15 00:00:00 2023-11-16 13:11:41 Refill Yohan Dukes 1.2.840.114 350.1.13.70 8.2.7.2.686 [id number] Reinier garvey [facility] 2023-10-24 11:10:34 2023-10-24 12:09:01 [id number] 2023-10-24 11:00:00 2023-10-24 12:09:01 Office Visit Yohan Dukes 1.2.840.114 350.1.13.70 8.2.7.2.686 [id number] Reinier garvey [facility] 2023-06-27 00:00:00 2023-06-27 00:00:00 Outpatient GC_GCBZW_Ka diyala_S [facility] [id number] [facility] 2023-05-30 00:00:00 2023-05-30 00:00:00 Outpatient GC_GCBZW_Ka diyala_S [facility] [id number] [facility] 2023-05-23 00:00:00 2023-05-23 00:00:00 Outpatient GC_GCBZW_Ka diyala_S PRIV PRIV [id number] [facility] 2023-05-16 00:00:00 2023-05-16 00:00:00 Outpatient GC_GCBZW_Ka diyala_S PRIV PRIV [id number] [facility] 2023-03-04 00:00:00 2023-03-04 00:00:00 Outpatient GC_GCBZW_Ka diyala_S PRIV PRIV [id number] [facility] 2021-08-12 16:00:00 2021-08-12 16:10:00 Imm/Inj Visit Vaccine, [facility] Grabiel Mendez [facility] 1..840.114 350.1.13.10 4.2.7.2.686 [id number] [facility] 2021-08-12 16:00:00 2021-08-12 16:00:00 Outpatient GRABIEL ANAND [facility] [id number] [facility] 2021-02-11 14:00:00 2021-02-11 14:00:00 Outpatient GRABIEL ANAND [facility] [id number] [facility] 2021-02-11 13:51:02 2021-02-11 13:51:12 Imm/Inj Visit Nurse, Awais P[facility]izatio n Grabiel Mendez [facility] 1..840.114 350.1.13.10 4.2.7.2.686 [id number] [facility] 2021-01-30 10:00:00 2021-01-30 10:00:00 Outpatient SAM ZAIDI [facility] [id number] [facility] 2021-01-30 07:42:55 2021-01-30 08:42:55 Nurse Visit Therapy, Awais Covid Sam Bui [facility] [place] ..840.114 350.1.13.10 4.2.7.2.686 [id number] [facility] 2021-01-30 00:00:00 2021-01-30 00:00:00 Orders Only Doctor Unassigned, Mena [facility] 1.2.840.114 350.1.13.10 4.2.7.2.686 [id number] [facility] Results Test Description Test Time Test Comments Results Result Co mments Source [facility]xhiwlnAWEUXJCTQ6362-94-88 20:42:00* Test Item Value Reference Range Interpretation Comme nts TSH (test code = TSH) 4.52 0.40-4.50 Vitamin B12 Lvl (test code = Vitamin B12 Lvl) [id number] [facility]OuohnguLEHSNCKNKW3895-67-48 20:42:00* Test Item Value Reference Range Interpretation Comme nts Sed Rate (test code = Sed Rate) 6 [facility] CenterUkxwugiDKKVHCNMKB9129-46-55 20:42:00* Test Item Value Reference Range Interpretation Comme nts CRP (test code = CRP) 0.3 [facility]NoinkvtKFEADL5159-53-77 22:24:41* Test Item Value Reference Range Interpretation Comme nts RADRPT (test code = RADRPT) PROCEDURE INFORMATION: Exam: MR Head Without Contrast Exam date and time: 07/24/2023 4:45 PM Age: 78 years old Clinical indication: Other amnesia; Additional info: /lack of coordination TECHNIQUE: Imaging protocol: Magnetic resonance imaging of the head without contrast. COMPARISON: SPINE CERVICAL 2 OR 3 VIEW DX 07/24/2023 3:40 PM FINDINGS: Brain: There is no acute cortical infarct, parenchymal hemorrhage or an intra-axial mass. Sellar and parasellar structures are normal. There is no cerebellar tonsillar ectopia. 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 There is flow in the 4th segments of both vertebral arteries, the basilar artery and intracranial carotid arteries. The cochlear, vestibule and 7th and 8th nerve fascicles are normal.Cerebral ventricles: Normal. No ventriculomegaly. Bones/joints: Unremarkable. Paranasal sinuses: Normal as visualized. No acute sinusitis. Mastoid air cells: Normal as visualized. No mastoid effusion. Orbital cavities: Unremarkable. Soft tissues: Unremarkable. IMPRESSION: There is no acute cortical infarct, parenchymal hemorrhage or an intra-axial mass. . 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 River Sesay MD On 07/24/2023 17:23:13; [id number] [facility] [id number] 21:12:53* Test Item Value Reference Range Interpretation Comme nts RADRPT (test code = RADRPT) PROCEDURE INFORMATION: Exam: XR Cervical Spine Exam date and time: 07/24/2023 3:47 PM Age: 78 years old Clinical indication: Other amnesia; Additional info: /m47.812, cervical spondylosis TECHNIQUE: Imaging protocol: Radiologic exam of the cervical spine. Views: 2 or 3 views. AP Lateral Odontoid 3 views COMPARISON: No relevant prior studies available. FINDINGS: AP and lateral images. Normal vertebral alignment. Moderate narrowing C6-C7 intervertebral disc space with marginal osteophytes. Other disc spaces maintained. Normal prevertebral soft tissues. IMPRESSION: Spondylosis and degenerative disc disease C6-C7. Giacomo Chaney MD On 07/24/2023 16:11:44; [id number] [facility] Notes Date/Time Note Provider Source 2024-06-04 11:13:31 [facility]2025-01-28 11:13:31* Yohan Dukes MD - 06/04/2024 10:30 AM PROGRAM PARAPROFESSIONAL History of Present Illness Memory Loss Tolerating the patch reasonably well. No skin irritation. Sleeping okay at night on Remeron. Here with her daughter, no behavioral issues. Allergies as of 06/04/2024 - Reviewed 06/04/2024 Allergen Reaction Noted Penicillin g Hives 03/05/2024 Penicillins Hives and Rash 01/30/2021 has a current medication list which includes the following prescription(s): aspirin, cholecalciferol, prolia, diltiazem cd, premarin, losartan, lovastatin, mirtazapine, multivitamin, and rivastigmine. Vitals:06/04/24 1052 BP: (!) 120/44 Pulse: 57 Resp: 16 Temp: 36.3 ?C (97.3 ?F) SpO2: 99% Neurological Exam Mental Status Awake and alert. Speech is normal. Year, moth, day / pics. Cranial NervesCN II: Visual acuity is normal. CN III, IV, : Extraocular movements intact bilaterally. Pupils equal round and reactive to light bilaterally. CN VII: Full and symmetric facial movement. CN XII: Tongue midline without atrophy or fasciculations. MotorStrength is 5/5 throughout all four extremities. SensoryLight touch is normal in upper and lower extremities. Temperature is normal in upper and lower extremities. Vibration is normal in upper and lower extremities. ReflexesDeep tendon reflexes: Symmetric. Gait Ambulates with a cane. Results for orders placed or performed in visit on 07/27/23 Copper Level Collection Time: 07/27/23 3:42 PM Result Value Ref Range Copper Lvl 126 70 - 175 mcg/dl Sedimentation Rate Collection Time: 07/27/23 3:42 PM Result Value Ref Range Sed Rate 6 < OR = 30 mm/hr C-Reactive Protein Collection Time: 07/27/23 3:42 PM Result Value Ref Range C-Reactive Protein 0.3 <8.0 mg/L Thyroid Stimulating Hormone Collection Time: 07/27/23 3:42 PM Result Value Ref Range TSH 4.52 (H) 0.40 - 4.50 mIU/L Vitamin B1 Level Collection Time: 07/27/23 3:42 PM Result Value Ref Range Vitamin B1 134 78 - 185 mmol/L Vitamin B12 Level Collection Time: 07/27/23 3:42 PM Result Value Ref Range Vitamin B12 Lvl 961 200 - 1,100 pg/mL Beta-Amyloid 42/40 Ratio (Qst) Collection Time: 07/27/23 3:42 PM Result Value Ref Range ABeta 42/40 Ratio 0.149 (L) > OR = 0.170 ABeta 40 235 pg/mL ABeta 42 35 pg/mL MRI brain wo IV contrast Result Date: 07/24/2023 PROCEDURE INFORMATION: Exam: MR Head Without Contrast Exam date and time: 07/24/2023 4:45 PM Age: 78 years old Clinical indication: Other amnesia; Additional info: /lack of coordination TECHNIQUE: Imaging protocol: Magnetic resonance imaging of the head without contrast. COMPARISON: SPINE CERVICAL 2 OR 3 VIEW DX 07/24/2023 3:40 PM FINDINGS: Brain: There is no acute cortical infarct, parenchymal hemorrhage or an intra-axial mass. Sellar and parasellar structures are normal. There is no cerebellar tonsillar ectopia. 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 There is flow in the 4th segments of both vertebral arteries, the basilar artery and intracranial carotid arteries. The cochlear, vestibule and 7th and 8th nerve fascicles are normal. Cerebral ventricles: Normal. No ventriculomegaly. Bones/joints: Unremarkable. Paranasal sinuses: Normal as visualized. No acute sinusitis. Mastoid air cells: Normal as visualized. No mastoid effusion. Orbital cavities: Unremarkable. Soft tissues: Unremarkable. There is no acute cortical infarct, parenchymal hemorrhage or an intra-axial mass. . 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 River Sesay MD On 07/24/2023 17:23:13; [id number] Assessment & PlanDiagnoses and all orders for this visit: MCI (mild cognitive impairment) Other orders - rivastigmine (Exelon) 9.5 MG/24HR; Place 1 patch over 24 hours on the skin 1 time each day. Increase Exelon to 9.5 mg RAM PARAPROFESSIONAL [facility] CenterUelwdll2018-69-82 11:13:31 [facility] CenterDtmhdfd3110-77-66 11:13:31 Diagnosis MCI (mild cognitive impairment) - Primary Mild cognitive impairment, so stated Ezoyxcv0517-08-64 11:13:31 [facility] CenterNgnacxy6382-87-44 11:13:31* [facility] CenterSwuslbb8827-30-97 11:13:31 [facility] CenterLinndej3397-00-52 11:13:31* Yohan Dukes MD - 06/04/2024 10:30 AM PROGRAM PARAPROFESSIONAL History of Present Illness Memory Loss Tolerating the patch reasonably well. No skin irritation. Sleeping okay at night on Remeron. Here with her daughter, no behavioral issues. Allergies as of 06/04/2024 - Reviewed 06/04/2024 Allergen Reaction Noted Penicillin g Hives 03/05/2024 Penicillins Hives and Rash 01/30/2021 has a current medication list which includes the following prescription(s): aspirin, cholecalciferol, prolia, diltiazem cd, premarin, losartan, lovastatin, mirtazapine, multivitamin, and rivastigmine. Vitals:06/04/24 1052 BP: (!) 120/44 Pulse: 57 Resp: 16 Temp: 36.3 ?C (97.3 ?F) SpO2: 99% Neurological Exam Mental Status Awake and alert. Speech is normal. Year, moth, day 10/11 pics. Cranial NervesCN II: Visual acuity is normal. CN III, IV, : Extraocular movements intact bilaterally. Pupils equal round and reactive to light bilaterally. CN VII: Full and symmetric facial movement. CN XII: Tongue midline without atrophy or fasciculations. MotorStrength is 5/5 throughout all four extremities. SensoryLight touch is normal in upper and lower extremities. Temperature is normal in upper and lower extremities. Vibration is normal in upper and lower extremities. ReflexesDeep tendon reflexes: Symmetric. Gait Ambulates with a cane. Results for orders placed or performed in visit on 07/27/23 Copper Level Collection Time: 07/27/23 3:42 PM Result Value Ref Range Copper Lvl 126 70 - 175 mcg/dl Sedimentation Rate Collection Time: 07/27/23 3:42 PM Result Value Ref Range Sed Rate 6 < OR = 30 mm/hr C-Reactive Protein Collection Time: 07/27/23 3:42 PM Result Value Ref Range C-Reactive Protein 0.3 <8.0 mg/L Thyroid Stimulating Hormone Collection Time: 07/27/23 3:42 PM Result Value Ref Range TSH 4.52 (H) 0.40 - 4.50 mIU/L Vitamin B1 Level Collection Time: 07/27/23 3:42 PM Result Value Ref Range Vitamin B1 134 78 - 185 mmol/L Vitamin B12 Level Collection Time: 07/27/23 3:42 PM Result Value Ref Range Vitamin B12 Lvl 961 200 - 1,100 pg/mL Beta-Amyloid 42/40 Ratio (Qst) Collection Time: 07/27/23 3:42 PM Result Value Ref Range ABeta 42/40 Ratio 0.149 (L) > OR = 0.170 ABeta 40 235 pg/mL ABeta 42 35 pg/mL MRI brain wo IV contrast Result Date: 07/24/2023 PROCEDURE INFORMATION: Exam: MR Head Without Contrast Exam date and time: 07/24/2023 4:45 PM Age: 78 years old Clinical indication: Other amnesia; Additional info: /lack of coordination TECHNIQUE: Imaging protocol: Magnetic resonance imaging of the head without contrast. COMPARISON: SPINE CERVICAL 2 OR 3 VIEW DX 07/24/2023 3:40 PM FINDINGS: Brain: There is no acute cortical infarct, parenchymal hemorrhage or an intra-axial mass. Sellar and parasellar structures are normal. There is no cerebellar tonsillar ectopia. 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 There is flow in the 4th segments of both vertebral arteries, the basilar artery and intracranial carotid arteries. The cochlear, vestibule and 7th and 8th nerve fascicles are normal. Cerebral ventricles: Normal. No ventriculomegaly. Bones/joints: Unremarkable. Paranasal sinuses: Normal as visualized. No acute sinusitis. Mastoid air cells: Normal as visualized. No mastoid effusion. Orbital cavities: Unremarkable. Soft tissues: Unremarkable. There is no acute cortical infarct, parenchymal hemorrhage or an intra-axial mass. . 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 River Sesay MD On 07/24/2023 17:23:13; [id number] Assessment & PlanDiagnoses and all orders for this visit: MCI (mild cognitive impairment) Other orders - rivastigmine (Exelon) 9.5 MG/24HR; Place 1 patch over 24 hours on the skin 1 time each day. Increase Exelon to 9.5 mg RAM PARAPROFESSIONAL [facility]Bmlvgxf2823-10-63 11:13:31 [facility] HospitalPbqypyc6579-23-62 11:13:31 Diagnosis MCI (mild cognitive impairment) - Primary Mild cognitive impairment, so stated [facility] HospitalOuoyvff4933-87-30 11:13:31 [facility] HospitalIeczvvn9810-96-96 12:40:45* [facility] HospitalIxhajxs4123-23-70 12:40:45 [facility] HospitalAjtoszd5426-32-52 12:40:45Upcoming Encounters Health Maintenance Due Date Last Done Comments Bone Density Scan 1945 Lipid Panel 1945 Medicare Annual Wellness (AWV) 1945 Annual Physical 1948 DTaP/Tdap/Td Vaccines (1 - Tdap) 1965 Zoster Vaccines (1 of 2) 02/01/1996 Pneumococcal Vaccine: 65+ Ye ars (1 of 1 - PCV) 2011 Respiratory Syncytial Virus (RSV) or >=60 (1 - 1-dose 75+ series) 2021 Influenza Vaccine (#1) 2024 HIB Vaccines Aged Out No longer eligi ble based on patient's age to complete this topic HPV Vaccines Aged Out No longer eligi ble based on patient's age to complete this topic Hepatitis A Vaccines Aged Out No long er eligible based on patient's age to complete this topic Hepatitis B Vaccines Aged Out No long er eligible based on patient's age to complete this topic IPV Vaccines Aged Out No longer eligi ble based on patient's age to complete this topic Meningococcal Vaccine Aged Out No reanna deni eligible based on patient's age to complete this topic Rotavirus Vaccines Aged Out No longer eligible based on patient's age to complete this topic [facility]Mzflarc2522-82-36 12:40:45 Diagnosis Anxiety Anxiety state, unspecified [facility] HospitalYeeomej9185-17-57 12:40:45 [facility] HospitalYlpkars0060-91-62 09:47:41* [facility] HospitalLkggzdo2415-07-87 09:47:41 [facility] HospitalQkhdnlp4460-54-07 09:47:41Upcoming Encounters Health Maintenance Due Date Last Done Comments Bone Density Scan 1945 Lipid Panel 1945 Medicare Annual Wellness (AWV) 1945 Annual Physical 1949 DTaP/Tdap/Td Vaccines (1 - Tdap) 1965 Zoster Vaccines (1 of 2) 02/01/1996 Pneumococcal Vaccine: 65+ Ye ars (1 of 1 - PCV) 2011 Respiratory Syncytial Virus (RSV) or >=60 (1 - 1-dose 75+ series) 2021 Influenza Vaccine (#1) 2024 HIB Vaccines Aged Out No longer eligi ble based on patient's age to complete this topic HPV Vaccines Aged Out No longer eligi ble based on patient's age to complete this topic Hepatitis A Vaccines Aged Out No long er eligible based on patient's age to complete this topic Hepatitis B Vaccines Aged Out No long er eligible based on patient's age to complete this topic IPV Vaccines Aged Out No longer eligi ble based on patient's age to complete this topic Meningococcal Vaccine Aged Out No reanna deni eligible based on patient's age to complete this topic Rotavirus Vaccines Aged Out No longer eligible based on patient's age to complete this topic [facility]Uukjkvg9314-88-06 09:47:41 [facility] HospitalEuhcguc0728-06-33 12:02:34* [facility] HospitalHkxqnyw7323-86-91 12:02:34 [facility] HospitalHsyrldi9762-01-48 12:02:34* Yohan Dukes MD - 03/05/2024 11:00 AM CDT History of Present Illness Anxiety Nausea on the Razadyne so discontinued. Anxiety stable on the Remeron. Will try Exelon patch. Moved and some issues with finding items like plates or spoons. Back for reevaluation. Allergies as of 03/05/2024 - Reviewed 03/05/2024 Allergen Reaction Noted Penicillin g Hives 03/05/2024 Penicillins Hives and Rash 01/30/2021 has a current medication list which includes the following prescription(s): aspirin, cholecalciferol, prolia, diltiazem cd, premarin, losartan, lovastatin, mirtazapine, multivitamin, and rivastigmine. Vitals:03/05/24 1109 BP: 133/62 Pulse: 65 Resp: 16 Temp: 36.6 ?C (97.9 ?F) SpO2: 99% Neurological Exam Mental Status Awake and alert. Speech is normal. Cranial NervesCN II: Visual acuity is normal. CN III, IV, : Extraocular movements intact bilaterally. Pupils equal round and reactive to light bilaterally. CN VII: Full and symmetric facial movement. CN XII: Tongue midline without atrophy or fasciculations. MotorStrength is 5/5 throughout all four extremities. SensoryLight touch is normal in upper and lower extremities. Temperature is normal in upper and lower extremities. Vibration is normal in upper and lower extremities. ReflexesDeep tendon reflexes: Symmetric. GaitCasual gait is normal including stance, stride, and arm swing. Results for orders placed or performed in visit on 07/27/23 Copper Level Collection Time: 07/27/23 3:42 PM Result Value Ref Range Copper Lvl 126 70 - 175 mcg/dl Sedimentation Rate Collection Time: 07/27/23 3:42 PM Result Value Ref Range Sed Rate 6 < OR = 30 mm/hr C-Reactive Protein Collection Time: 07/27/23 3:42 PM Result Value Ref Range C-Reactive Protein 0.3 <8.0 mg/L Thyroid Stimulating Hormone Collection Time: 07/27/23 3:42 PM Result Value Ref Range TSH 4.52 (H) 0.40 - 4.50 mIU/L Vitamin B1 Level Collection Time: 07/27/23 3:42 PM Result Value Ref Range Vitamin B1 134 78 - 185 mmol/L Vitamin B12 Level Collection Time: 07/27/23 3:42 PM Result Value Ref Range Vitamin B12 Lvl 961 200 - 1,100 pg/mL Beta-Amyloid 42/40 Ratio (Qst) Collection Time: 07/27/23 3:42 PM Result Value Ref Range ABeta 42/40 Ratio 0.149 (L) > OR = 0.170 ABeta 40 235 pg/mL ABeta 42 35 pg/mL MRI brain wo IV contrast Result Date: 07/24/2023 PROCEDURE INFORMATION: Exam: MR Head Without Contrast Exam date and time: 07/24/2023 4:45 PM Age: 78 years old Clinical indication: Other amnesia; Additional info: /lack of coordination TECHNIQUE: Imaging protocol: Magnetic resonance imaging of the head without contrast. COMPARISON: SPINE CERVICAL 2 OR 3 VIEW DX 07/24/2023 3:40 PM FINDINGS: Brain: There is no acute cortical infarct, parenchymal hemorrhage or an intra-axial mass. Sellar and parasellar structures are normal. There is no cerebellar tonsillar ectopia. 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 There is flow in the 4th segments of both vertebral arteries, the basilar artery and intracranial carotid arteries. The cochlear, vestibule and 7th and 8th nerve fascicles are normal. Cerebral ventricles: Normal. No ventriculomegaly. Bones/joints: Unremarkable. Paranasal sinuses: Normal as visualized. No acute sinusitis. Mastoid air cells: Normal as visualized. No mastoid effusion. Orbital cavities: Unremarkable. Soft tissues: Unremarkable. There is no acute cortical infarct, parenchymal hemorrhage or an intra-axial mass. . 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 River Sesay MD On 07/24/2023 17:23:13; [id number] Assessment & PlanDiagnoses and all orders for this visit: MCI (mild cognitive impairment) Anxiety Other orders - rivastigmine (Exelon) 4.6 MG/24HR; Place 1 patch over 24 hours on the skin 1 time each day. Add Exelon patch 4.6 mg/d. Risks, benefits, side effects reviewed with patient. I am the continuing focal point for needed health care services and medicalcare services that are part of ongoing care related to this patient's single, serious condition or complex condition. [facility] HospitalRtbfpgu0932-07-01 12:02:34Upcoming Encounters Health Maintenance Due Date Last Done Comments Bone Density Scan 1945 Lipid Panel 1945 Medicare Annual Wellness (AWV) 1945 DTaP/Tdap/Td Vaccines (1 - Tdap) 1965 Zoster Vaccines (1 of 2) 02/01/1996 Respiratory Syncytial Virus (RSV) or >=60 (1 - 1-dose 60+ series) 2006 Pneumococcal Vaccine: 65+ Ye ars (1 of 1 - PCV) 2011 Influenza Vaccine (#1) 2024 HIB Vaccines Aged Out No longer eligi ble based on patient's age to complete this topic HPV Vaccines Aged Out No longer eligi ble based on patient's age to complete this topic Hepatitis A Vaccines Aged Out No long er eligible based on patient's age to complete this topic Hepatitis B Vaccines Aged Out No long er eligible based on patient's age to complete this topic IPV Vaccines Aged Out No longer eligi ble based on patient's age to complete this topic Meningococcal Vaccine Aged Out No reanna deni eligible based on patient's age to complete this topic Rotavirus Vaccines Aged Out No longer eligible based on patient's age to complete this topic [facility]Phvkvpu9700-60-05 12:02:34 Diagnosis MCI (mild cognitive impairment) - Primary Mild cognitive impairment, so stated Anxiety Anxiety state, unspecified [facility] HospitalMhsdvfj7486-49-90 12:02:34 [facility] HospitalRihneub2237-46-34 11:24:18* [facility] HospitalAjijwzg2463-55-86 11:24:18* Yohan Dukes MD - 12/13/2023 10:45 AM CDT HPI Not taking the Razadyne, going to move in the next few weeks. May try Exelon patch or Namenda at follow up. Anxiety is better. Done with PT for the back, helped. Allergies as of 12/13/2023 - Reviewed 12/13/2023 Allergen Reaction Noted Penicillins Hives and Rash 01/30/2021 has a current medication list which includes the following prescription(s): aspirin, cholecalciferol, culturelle digestive health, prolia, diltiazem cd, premarin, losartan, lovastatin, mirtazapine, multivitamin, and galantamine er. Vitals:12/13/23 1101 BP: 120/61 Pulse: 68 Resp: 16 Temp: 36.6 ?C (97.9 ?F) SpO2: 99% Neurological Exam Mental Status Awake and alert. Speech is normal. Cranial NervesCN II: Visual acuity is normal. CN III, IV, : Extraocular movements intact bilaterally. Pupils equal round and reactive to light bilaterally. CN VII: Full and symmetric facial movement. CN XII: Tongue midline without atrophy or fasciculations. MotorStrength is 5/5 throughout all four extremities. SensoryLight touch is normal in upper and lower extremities. Temperature is normal in upper and lower extremities. Vibration is normal in upper and lower extremities. ReflexesDeep tendon reflexes: Symmetric. Gait Ambulates with a cane. Results for orders placed or performed in visit on 07/27/23 Copper Level Result Value Ref Range Copper Lvl 126 70 - 175 mcg/dl Sedimentation Rate Result Value Ref Range Sed Rate 6 < OR = 30 mm/hr C-Reactive Protein Result Value Ref Range C-Reactive Protein 0.3 <8.0 mg/L Thyroid Stimulating Hormone Result Value Ref Range TSH 4.52 (H) 0.40 - 4.50 mIU/L Vitamin B1 Level Result Value Ref Range Vitamin B1 134 78 - 185 mmol/L Vitamin B12 Level Result Value Ref Range Vitamin B12 Lvl 961 200 - 1,100 pg/mL Beta-Amyloid 42/40 Ratio (Qst) Result Value Ref Range ABeta 42/40 Ratio 0.149 (L) > OR = 0.170 ABeta 40 235 pg/mL ABeta 42 35 pg/mL MRI brain wo IV contrast Result Date: 07/24/2023ROCEDURE INFORMATION: Exam: MR Head Without Contrast Exam date and time: 07/24/2023 4:45 PM Age: 78 years old Clinical indication: Other amnesia; Additional info: /lack of coordination TECHNIQUE: Imaging protocol: Magnetic resonance imaging of the head without contrast. COMPARISON: SPINE CERVICAL 2 OR 3 VIEW DX 07/24/2023 3:40 PM FINDINGS: Brain: There is no acute cortical infarct, parenchymal hemorrhage or an intra-axial mass. Sellar and parasellar structures are normal. There is no cerebellar tonsillar ectopia. 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 There is flow in the 4th segments of both vertebral arteries, the basilar artery and intracranial carotid arteries. The cochlear, vestibule and 7th and 8th nerve fascicles are normal. Cerebral ventricles: Normal. No ventriculomegaly. Bones/joints: Unremarkable. Paranasal sinuses: Normal as visualized. No acute sinusitis. Mastoid air cells: Normal as visualized. No mastoid effusion. Orbital cavities: Unremarkable. Soft tissues: Unremarkable. There is no acute cortical infarct, parenchymal hemorrhage or an intra-axial mass. . 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 River Sesay MD On 07/24/2023 17:23:13; [id number] Assessment & PlanAnxiety Improved on Remeron MCI (mild cognitive impairment) [facility] 11:24[facility]18 [facility] 11:24:18 Diagnosis Anxiety - Primary Anxiety state, unspecified MCI (mild cognitive impairment) Mild cognitive impairment, so stated [facility]frkfj2295[facility]91[facility]32 11:24:18 [facility]Xaerjxo3700-80-73 13:46:19* [facility]olf[facility]qa5802-74-93 13:46:19Upcoming Encounters Health Maintenance Due Date Last Done Comments Lipid Panel 1945 Medicare Annual Wellness (AWV) 1945 DTaP/Tdap/Td Vaccines (1 - Tdap) 1965 Zoster Vaccines (1 of 2) 02/01/1996 Respiratory Syncytial Virus (RSV) or >=60 (1 - 1-dose 60+ series) 2006 Pneumococcal Vaccine: 65+ Ye ars (1 of 1 - PCV) 2011 Influenza Vaccine (#1) 2024 HIB Vaccines Aged Out No longer eligi ble based on patient's age to complete this topic HPV Vaccines Aged Out No longer eligi ble based on patient's age to complete this topic Hepatitis A Vaccines Aged Out No long er eligible based on patient's age to complete this topic Hepatitis B Vaccines Aged Out No long er eligible based on patient's age to complete this topic IPV Vaccines Aged Out No longer eligi ble based on patient's age to complete this topic Meningococcal Vaccine Aged Out No reanna deni eligible based on patient's age to complete this topic Rotavirus Vaccines Aged Out No longer eligible based on patient's age to complete this topic [facility] 13:46:19 [facility]Xlsuqpi2197-78-64 13:11:50* [facility]Vemgwhb6813-26-16 13:11:50Upcoming Encounters Health Maintenance Due Date Last Done Comments Lipid Panel 1945 Medicare Annual Wellness (AWV) 1945 DTaP/Tdap/Td Vaccines (1 - Tdap) 1965 Zoster Vaccines (1 of 2) 02/01/1996 Respiratory Syncytial Virus (RSV) or >=60 (1 - 1-dose 60+ series) 2006 Pneumococcal Vaccine: 65+ Ye ars (1 of 1 - PCV) 2011 Influenza Vaccine (#1) 2024 HIB Vaccines Aged Out No longer eligi ble based on patient's age to complete this topic HPV Vaccines Aged Out No longer eligi ble based on patient's age to complete this topic Hepatitis A Vaccines Aged Out No long er eligible based on patient's age to complete this topic Hepatitis B Vaccines Aged Out No long er eligible based on patient's age to complete this topic IPV Vaccines Aged Out No longer eligi ble based on patient's age to complete this topic Meningococcal Vaccine Aged Out No reanna deni eligible based on patient's age to complete this topic Rotavirus Vaccines Aged Out No longer eligible based on patient's age to complete this topic [facility]Evtixfm3155-83-12 13:11:50 Diagnosis Anxiety Anxiety state, unspecified [facility]dfxtov0360-16-24 13:11:50 [facility]Fwrebfs3581-47-66 13:32:30* [facility]Opgoqza7890-99-75 13:32:30* Yohan Dukes MD - 10/24/2023 11:00 AM CDT HPI Patient has been doing PT. Didn't tolerate the Razadyne, nausea. Therapy has been helpful although balance is still quite poor needs a cane, sometimes a rolling walker. Does not really want to try a new medication for the memory at least today. Her and her are thinking about moving but patient has underlying anxiety and the thought of moving makes her anxiety worse and that tends to snowball into the patient thinking that everything is worse. BMI is 17. Will add some Remeron per the family's request for something for anxiety which seems reasonable. Allergies as of 10/24/2023 - Reviewed 10/24/2023 Allergen Reaction Noted Penicillins Hives and Rash 01/30/2021 has a current medication list which includes the following prescription(s): aspirin, cholecalciferol, [facility], prolia, diltiazem cd, premarin, losartan, lovastatin, and multivitamin. Vitals:10/24/23 1144 BP: 127/64 Pulse: 60 Resp: 16 Temp: 36.5 ?C (97.7 ?F) SpO2: 99% Neurological Exam Awake and alert. Cranial nerves are unremarkable. Strength full. Sensation intact. Reflexes symmetric. Cerebellar exam demonstrates no ataxia. Ambulates with a cane Results for orders placed or performed in visit on 07/27/23 Copper Level Result Value Ref Range Copper Lvl 126 70 - 175 mcg/dl Sedimentation Rate Result Value Ref Range Sed Rate 6 < OR = 30 mm/hr C-Reactive Protein Result Value Ref Range C-Reactive Protein 0.3 <8.0 mg/L Thyroid Stimulating Hormone Result Value Ref Range TSH 4.52 (H) 0.40 - 4.50 mIU/L Vitamin B1 Level Result Value Ref Range Vitamin B1 134 78 - 185 mmol/L Vitamin B12 Level Result Value Ref Range Vitamin B12 Lvl 961 200 - 1,100 pg/mL Beta-Amyloid 42/40 Ratio (Qst) Result Value Ref Range ABeta 42/40 Ratio 0.149 (L) > OR = 0.170 ABeta 40 235 pg/mL ABeta 42 35 pg/mL MRI brain wo IV contrast Result Date: 07/24/2023ROCEDURE INFORMATION: Exam: MR Head Without Contrast Exam date and time: 07/24/2023 4:45 PM Age: 78 years old Clinical indication: Other amnesia; Additional info: /lack of coordination TECHNIQUE: Imaging protocol: Magnetic resonance imaging of the head without contrast. COMPARISON: SPINE CERVICAL 2 OR 3 VIEW DX 07/24/2023 3:40 PM FINDINGS: Brain: There is no acute cortical infarct, parenchymal hemorrhage or an intra-axial mass. Sellar and parasellar structures are normal. There is no cerebellar tonsillar ectopia. 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 There is flow in the 4th segments of both vertebral arteries, the basilar artery and intracranial carotid arteries. The cochlear, vestibule and 7th and 8th nerve fascicles are normal. Cerebral ventricles: Normal. No ventriculomegaly. Bones/joints: Unremarkable. Paranasal sinuses: Normal as visualized. No acute sinusitis. Mastoid air cells: Normal as visualized. No mastoid effusion. Orbital cavities: Unremarkable. Soft tissues: Unremarkable. There is no acute cortical infarct, parenchymal hemorrhage or an intra-axial mass. . 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 River Sesay MD On 07/24/2023 17:23:13; [id number] Assessment & PlanMCI (mild cognitive impairment) with memory loss Consider Exelon patch if patient is amenable Lumbar radiculopathy Continue therapy Anxiety Orders:mirtazapine (Remeron) 15 MG tablet; Take 1 tablet by mouth at bedtime. Add Remeron at night. Risks, benefits, side effects reviewed with patient. Time: 35 minutes [facility]mbknbe3147-23-91 13:32:30Upcoming Encounters Health Maintenance Due Date Last Done Comments Lipid Panel 1945 Medicare Annual Wellness (AWV) 1945 DTaP/Tdap/Td Vaccines (1 - Tdap) 1965 Zoster Vaccines (1 of 2) 02/01/1996 Respiratory Syncytial Virus (RSV) or >=60 (1 - 1-dose 60+ series) 2006 Pneumococcal Vaccine: 65+ Ye ars (1 of 1 - PCV) 2011 Influenza Vaccine (Season Ended) 2024 HIB Vaccines Aged Out No longer eligi ble based on patient's age to complete this topic HPV Vaccines Aged Out No longer eligi ble based on patient's age to complete this topic Hepatitis A Vaccines Aged Out No long er eligible based on patient's age to complete this topic Hepatitis B Vaccines Aged Out No long er eligible based on patient's age to complete this topic IPV Vaccines Aged Out No longer eligi ble based on patient's age to complete this topic Meningococcal Vaccine Aged Out No reanna deni eligible based on patient's age to complete this topic Rotavirus Vaccines Aged Out No longer eligible based on patient's age to complete this topic [facility]Eytfjkc8398-20-44 13:32:30 Diagnosis MCI (mild cognitive impairment) with memory loss - Primary Mild cognitive impairment, so stated Lumbar radiculopathy Thoracic or lumbosacral neuritis or radiculitis, unspecified Anxiety Anxiety state, unspecified [place] [id number] 13:32:30 [place] 11326-06-18 12:03:20 Images from the original note were not included. [id number] Mirtazapine Oral Tablet Brands: Remeron Uses This medicine is used for the following purposes: ? depression ? muscle aches ? post-traumatic stress disorder Instructions This medicine may be taken with or without food. This medicine will work best if you take it at about the same time every day. Keep the medicine at room temperature. Avoid heat and direct light. It may take several weeks for this medicine to fully work. It is important that you keep taking each dose of this medicine on time even if you are feeling well. If you forget to take a dose on time, take it as soon as you remember. If it is almost time for the next dose, do not take the missed dose. Return to your normal schedule. Do not take 2 doses at one time. Tell your doctor and pharmacist about all your medicines. Include prescription and wgit-dlx-gzcpooy medicines, vitamins, and herbal medicines. Do not suddenly stop taking this medicine. Check with your doctor before stopping. Cautions Tell your doctor and pharmacist if you ever had an allergic reaction to a medicine. Do not use the medication any more than instructed. This medicine may cause dizziness or fainting. Do not stand or sit up quickly. Your ability to stay alert or to react quickly may be impaired by this medicine. Do not operate machinery or drive while on this medicine. Please check with your doctor before drinking alcohol while on this medicine. Family should check on the patient often. Call the doctor if patient becomes more depressed, has thoughts of suicide, or shows changes in behavior. Tell the doctor or pharmacist if you are , planning to be , or . Do not start or stop any other medicines without first speaking to your doctor or pharmacist. Do not share this medicine with anyone who has not been prescribed this medicine. Some patients have serious side effects from this medicine. Ask your pharmacist to show you the information from the Food and Drug Administration (FDA) and discuss it with you. Side Effects The following is a list of some common side effects from this medicine. Please speak with your doctor about what you should do if you experience these or other side effects. ? constipation ? dizziness or drowsiness ? dry mouth ? weight gain Call your doctor or get medical help right away if you notice any of these more serious side effects: ? agitated feeling or trouble sleeping ? confusion ? swelling of the legs, feet, and hands ? pain in the eye ? fainting ? fever ? hallucinations (unusual thoughts, seeing or hearing things that are not real) ? fast or irregular heart beats ? mood changes ? muscle aches, spasms or abnormal movements ? shakiness ? swelling in the neck or throat ? blurring or changes of vision A few people may have an allergic reaction to this medicine. Symptoms can include difficulty breathing, skin rash, itching, swelling, or severe dizziness. If you notice any of these symptoms, seek medical help quickly. Extra Please speak with your doctor, nurse, or pharmacist if you have any questions about this medicine. [email or web address] IMPORTANT NOTE: This document tells you briefly how to take your medicine, but it does not tell you all there is to know about it. Your doctor or pharmacist may give you other documents about your medicine. Please talk to them if you have any questions. Always follow their advice. There is a more complete description of this medicine available in Bahamian. Scan this code on your smartphone or tablet or use the web address below. You can also ask your pharmacist for a printout. If you have any questions, please ask your pharmacist. The display and use of this drug information is subject to Terms of Use. Copyright(c) 2023 3TEN[employer]. ? [employer]. All rights reserved. This information is not intended as a substitute for professional medical care. Always follow your healthcare professional's instructions. [facility]2024-06-18 11:57:39 Images from the original note were not included. [id number] Rivastigmine Transdermal System Brands: Exelon Uses This medicine is used for the following purposes: ? Alzheimer's disease ? dementia Instructions DO NOT take this medicine by mouth. Avoid placing the patch near the breast. Remove the patch after 24 hours. Keep the medicine at room temperature. Avoid heat and direct light. This patch should not be cut. Wash your hands before and after handling this medicine. Remove old patch before applying new one. Change the location of the new patch. Remove the plastic liner that protects the sticky side of the patch before applying to the skin. Be sure the area of skin is clean and dry before putting on a new patch. Do not use soap, oils, or alcohol on the area of the skin before applying the patch. Use only water and gently pat dry. Do not rub the skin. Apply the patch to a clean, dry, hairless area. Avoid skin that is red, scraped, or damaged. Press the patch firmly for a few seconds to make sure it stays in place. If the patch does not stick, speak with your doctor or pharmacist. Do not cover the patch with bandage or tape unless instructed by your doctor or pharmacist. After removing the patch, fold it together and discard it out of reach of children and pets. Do not dispose of a used patch by flushing it into the toilet. Avoid getting the medicine in the eyes, nose, or mouth. Wash your hands after touching patch. To avoid skin irritation, wait at least two weeks before using the patch on same location again. If the patch falls off, apply a new a patch on a different location of the body. If the patch falls off or you forgot to use the patch on time, apply a new patch immediately to a different location. Replace this new patch at your next usual dosing time. Do not apply heat on the area with the patch. Avoid heating blankets, suntan beds, or hot tubs. Clothing may be worn over the patch. Avoid activities that can increase the body temperature. Tell your doctor if you have fever. Drug interactions can change how medicines work or increase risk for side effects. Tell your health care providers about all medicines taken. Include prescription and mxgb-xor-jgoqlrh medicines, vitamins, and herbal medicines. Speak with your doctor or pharmacist before starting or stopping any medicine. Tell your doctor if symptoms do not get better or if they get worse. Keep all appointments for medical exams and tests while on this medicine. Do not use more than 1 patch at any one time. Cautions Tell your doctor and pharmacist if you ever had an allergic reaction to a medicine. Your ability to stay alert or to react quickly may be impaired by this medicine. Do not drive or operate machinery until you know how this medicine will affect you. Please check with your doctor before drinking alcohol while on this medicine. Tell your doctor if you have severe or persistent sweating, diarrhea or vomiting. These can increase your risk of a serious side effect. Tell the doctor or pharmacist if you are , planning to be , or . It is important that you keep taking each dose of this medicine on time even if you are feeling well. If you forget to take a dose on time, take it as soon as you remember. If it is almost time for the next dose, do not take the missed dose. Return to your normal schedule. Do not take 2 doses at one time. Do not share this medicine with anyone who has not been prescribed this medicine. Call your doctor if you have a skin reaction that does not improve within 2 days of removing the patch. Side Effects The following is a list of some common side effects from this medicine. Please speak with your doctor about what you should do if you experience these or other side effects. ? decreased appetite ? diarrhea ? dizziness ? nausea and vomiting ? skin irritation where medicine is applied ? weight loss Call your doctor or get medical help right away if you notice any of these more serious side effects: ? severe or persistent abdominal pain ? coughing up blood or vomit that looks like coffee grounds ? drowsiness or sedation ? fainting ? fast, irregular, or slow heartbeat ? seizures ? shakiness ? dark, tarry stool ? difficulty or discomfort urinating A few people may have an allergic reaction to this medicine. Symptoms can include difficulty breathing, skin rash, itching, swelling, or severe dizziness. If you notice any of these symptoms, seek medical help quickly. Extra Please speak with your doctor, nurse, or pharmacist if you have any questions about this medicine. [email or web address] IMPORTANT NOTE: This document tells you briefly how to take your medicine, but it does not tell you all there is to know about it. Your doctor or pharmacist may give you other documents about your medicine. Please talk to them if you have any questions. Always follow their advice. There is a more complete description of this medicine available in Bahamian. Scan this code on your smartphone or tablet or use the web address below. You can also ask your pharmacist for a printout. If you have any questions, please ask your pharmacist. The display and use of this drug information is subject to Terms of Use. Copyright(c) 2023 [employer] ? 6083-2585 [employer]. All rights reserved. This information is not intended as a substitute for professional medical care. Always follow your healthcare professional's instructions. [facility]2024-04-16 13:36:21* PROCEDURE INFORMATION: Exam: MR Lumbar Spine Without Contrast Exam date and time: 08/22/2023 1:42 PM Age: 78 years old Clinical indication: Radiculopathy, lumbar region; Additional info: /radiculopathy lumbar region TECHNIQUE: Imaging protocol: Magnetic resonance imaging of the lumbar spine without contrast. COMPARISON: No relevant prior studies available. FINDINGS: Bones/joints: Normal vertebral body height. Normal marrow signal characteristics. Mixed type 1 and type 2 degenerative endplate marrow signal changes anteriorly at L2-L3. Spinal cord: The conus terminates at a normal level. No intrinsic clumping or thickening of the nerve roots of the cauda equina. Any extrinsic impingement from degenerative change will be discussed in detail by level. T12-L1: Mild facet arthropathy. No stenosis of the spinal canal or foramina. L1-L2: No significant degenerative change. No stenosis. L2-L3: Disc bulge. Mild facet arthropathy with ligamentum flavum thickening. Mild stenosis in the lateral recesses of the spinal canal. Mild foraminal stenosis bilaterally. L3-L4: Uncovering of the disc. Disc bulge. Severe facet arthropathy with ligamentum flavum thickening. Mild to moderate stenosis of the spinal canal. Mild to moderate foraminal stenosis bilaterally. L4-L5: Grade 1 anterolisthesis at L3-L4 and L4-L5 basis of degenerative change. Uncovering of the disc. Disc bulge. Severe facet arthropathy with ligamentum flavum thickening. Mild to moderate stenosis of the spinal canal. Stenosis is greatest in the lateral recesses. Mild to moderate foraminal stenosis bilaterally. L5-S1: Disc bulge. Severe facet arthropathy. 6 mm right synovial cyst from the right facet joint that is external to the spinal. Mild stenosis of the spinal canal. Stenosis is greatest in the lateral recesses. Mild to moderate foraminal stenosis bilaterally. Soft tissues: Unremarkable. IMPRESSION: 1. Degenerative changes of the lumbar spine greatest at the lower lumbar levels. There is also facet predominant disease with severe facet arthropathy at L3-L4 and L4-L5. 2. There is up to mild to moderate stenosis of the spinal canal and foramina. 3. Details of the degenerative findings and stenosis are noted by level in the findings section of the report. 4. Grade 1 anterolisthesis at L3-L4 and L4-L5 basis of degenerative change. Amado Schmidt MD On 08/22/2023 14:12:06; [id number] [place] [employer] [id number] 16:39:41* PROCEDURE INFORMATION: Exam: MR Head Without Contrast Exam date and time: 07/24/2023 4:45 PM Age: 78 years old Clinical indication: Other amnesia; Additional info: /lack of coordination TECHNIQUE: Imaging protocol: Magnetic resonance imaging of the head without contrast. COMPARISON: SPINE CERVICAL 2 OR 3 VIEW DX 07/24/2023 3:40 PM FINDINGS: Brain: There is no acute cortical infarct, parenchymal hemorrhage or an intra-axial mass. Sellar and parasellar structures are normal. There is no cerebellar tonsillar ectopia. 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 There is flow in the 4th segments of both vertebral arteries, the basilar artery and intracranial carotid arteries. The cochlear, vestibule and 7th and 8th nerve fascicles are normal. Cerebral ventricles: Normal. No ventriculomegaly. Bones/joints: Unremarkable. Paranasal sinuses: Normal as visualized. No acute sinusitis. Mastoid air cells: Normal as visualized. No mastoid effusion. Orbital cavities: Unremarkable. Soft tissues: Unremarkable. IMPRESSION: There is no acute cortical infarct, parenchymal hemorrhage or an intra-axial mass. . 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 River Sesay MD On 07/24/2023 17:23:13; [id number] CHELSEA TimmonsDrflpjwl1589-06-11 15:34:48* PROCEDURE INFORMATION: Exam: XR Cervical Spine Exam date and time: 07/24/2023 3:47 PM Age: 78 years old Clinical indication: Other amnesia; Additional info: /m47.812, cervical spondylosis TECHNIQUE: Imaging protocol: Radiologic exam of the cervical spine. Views: 2 or 3 views. AP Lateral Odontoid 3 views COMPARISON: No relevant prior studies available. FINDINGS: AP and lateral images. Normal vertebral alignment. Moderate narrowing C6-C7 intervertebral disc space with marginal osteophytes. Other disc spaces maintained. Normal prevertebral soft tissues. IMPRESSION: Spondylosis and degenerative disc disease C6-C7. Giacomo Chaney MD On 07/24/2023 16:11:44; [id number] CHELSEA Timmons
[2024-08-27 08:55] LABS: Absolute Lymphocytes (CBC) 0.6 K/uL (0.7-4.9); Absolute Monocytes 0.2 K/uL (0.1-1.3); Absolute Neutrophil 2.5 K/uL (1.8-8.0); Basophils % 0.8 % (0-1.3); Hemoglobin 12.3 g/dL (12.0-15.0); Lymphocytes % 18.2 % (15.3-44.8); MCH 31.6 pg (27.0-35.0); MCHC 34.2 g/dL (32.0-36.0); MCV 92.4 fL (80-100); MPV 7.5 fL (7.6-11.3); Monocytes % 6.6 % (3.3-12.3); Neutrophils % 73.4 % (41.7-73.7); Platelets 179 thou/uL (152-406); RBC Red Blood Cell Count 3.89 M/uL (3.86-4.86); Red Cell Distribution Width 13.3 % (12.1-15.2)
[2024-08-27 09:01] LABS: PT Prothrombin Time 11.2 SECONDS (10-13.0); Protime INR 0.98
[2024-08-27 09:16] LABS: Albumin 3.5 g/dL (3.4-5.0); Albumin/Globulin Ratio 1.2 (1.1-1.8); Anion Gap 11.4 mEq/L (5.0-15.0); Bilirubin Direct 0.2 mg/dL (0-0.2); Bilirubin Indirect, Calculated 0.4 mg/dL (0.2-0.8); Bilirubin Total 0.6 mg/dL (0.2-1.0); Globulin 2.9 g/dL (2.3-3.5); Potassium 3.4 mEq/L (3.5-5.1); Protein, Total 6.4 g/dL (6.4-8.2); Troponin High Sensitivity 23.9 pg/mL (<58.9)
--- NOTE | 2024-08-27 09:49 | RAD REPORT ---
Procedure: Chest Single View HISTORY: Generalized weakness COMPARISON: 2020 FINDINGS: The lungs appear clear of acute infiltrate. No significant pleural effusion noted. The heart is mildly enlarged. IMPRESSION: No acute abnormality is displayed.
[2024-08-27 10:23] LABS: Specific Gravity 1.013 (1.005-1.030); Urine Bilirubin NEGATIVE (Negative); Urine Blood Negative (Negative); Urine Clarity Clear (Clear); Urine Color Light-Yellow (Yellow); Urine Glucose NEGATIVE (Negative); Urine Ketones 1+ (Negative); Urine Microscopic Reflex YN NO UMIC; Urine Nitrite NEGATIVE (Negative); Urine Protein NEGATIVE (Negative); Urine Urobilinogen Normal (Normal)
--- NOTE | 2024-08-27 10:56 | ER ---
Nurse's Notes [facility] Name: Christal Mosley Age: 79 yrs Sex: Female : 1945 Arrival Date: 08/27/2024 Time: 08:15 Bed 2 Private MD: Diagnosis: Other fatigue;Hypothermia;Hypokalemia Presentation: 08/27 08:20 Chief complaint: EMS states: GENERALIZED MALAISE SINCE THIS AM. Coronavirus screen: At bp this time, the client does not indicate any symptoms associated with coronavirus-19. Ebola Screen: No symptoms or risks identified at this time. Initial Sepsis Screen: Does the patient meet any 2 criteria? Temp <36.0*C (96.8*F)) or > 38.3*C (100.9*F). No. Patient's initial sepsis screen is negative. Does the patient have a suspected source of infection? No. Patient's initial sepsis screen is negative. Risk Assessment: Do you want to hurt yourself or someone else? Patient reports no desire to harm self or others. Onset of symptoms was August 27, 2024. Care prior to arrival: Medication(s) given: zofran 4 mg, IV initiated. 20 GA, in the right forearm, Glucose check: 240. 08:20 Method Of Arrival: EMS: [facility] bp 08:20 Acuity: IGNACIO 3 bp Triage Assessment: 08:21 General: Appears distressed, ill, slender, Behavior is cooperative, appropriate for bp age, drowsy. Pain: Complains of pain in abdomen. EENT: No deficits noted. Neuro: Level of Consciousness is alert, obeys commands, lethargic. Cardiovascular: Rhythm is sinus bradycardia. Respiratory: No deficits noted. GI: No signs and/or symptoms were reported involving the gastrointestinal system. : No signs and/or symptoms were reported regarding the genitourinary system. Derm: No deficits noted. Musculoskeletal: No deficits noted. Historical: - Allergies: 08:21 PENICILLINS; bp - Home Meds: 08:21 Diltiazem Oral [Active]; Lovastatin Oral [Active]; bp - PMHx: 08:21 Hypertentension; bp - Immunization history:: Adult Immunizations up to date. - Infectious Disease History:: Denies. - Social history:: Smoking status: Patient denies any tobacco usage or history of. Screenin:23 [facility] [place] ED Fall Risk Assessment (Adult) History of falling in the last 3 months, bp including since admission No falls in past 3 months (0 pts) Confusion or Disorientation No (0 pts) Intoxicated or Sedated No (0 pts) Impaired Gait No (0 pts) Mobility Assist Device Used No (0 pt) Altered Elimination No (0 pt) Score/Fall Risk Level 0 - 2 = Low Risk Oriented to surroundings. Abuse screen: Denies threats or abuse. Denies injuries from another. Nutritional screening: No deficits noted. Tuberculosis screening: No symptoms or risk factors identified. Assessment: 08:24 General: Appears distressed, ill, Behavior is cooperative, appropriate for age, drowsy. bp 11:41 Reassessment: Patient appears in no apparent distress at this time. Patient and/or ph family updated on plan of care and expected duration. Pain level reassessed. Patient is alert, oriented x 3, equal unlabored respirations, skin warm/dry/pink. 12:32 Reassessment: Patient appears in no apparent distress at this time. Patient and/or ph family updated on plan of care and expected duration. Pain level reassessed. Patient is alert, oriented x 3, equal unlabored respirations, skin warm/dry/pink. 13:40 Reassessment: Patient appears in no apparent distress at this time. Patient and/or ph family updated on plan of care and expected duration. Pain level reassessed. Patient is alert, oriented x 3, equal unlabored respirations, skin warm/dry/pink. Vital Signs: 08:20 BP 110 / 60; Pulse 58; Resp 15; Temp 95.5; Pulse Ox 99% on R/A; bp 08:32 BP 110 / 70; Pulse 57; Resp 18; Temp 97.5(A); Pulse Ox 100% on R/A; Weight 48.08 kg; ph Height 5 ft. 4 in. ; 09:41 BP 123 / 57; Pulse 52; Resp 18; Pulse Ox 100% on R/A; ph 12:32 BP 130 / 62; Pulse 61; Resp 18; Pulse Ox 99% on R/A; ph 13:40 BP 120 / 57; Pulse 63; Resp 18; Temp 97.4; Pulse Ox 100% on R/A; ph 08:32 Body Mass Index 18.19 (48.08 kg, 162.56 cm) ph Vitals: 09:41 Cardiac Rhythm Assessment Sinus marianne. ph ED Course: 08:19 Patient arrived in ED. bp 08:20 Alejandro Hathaway DO is Attending Physician. ms3 08:21 Triage completed. bp 08:21 Arm band placed on. bp 08:23 Patient has correct armband on for positive identification. bp 08:23 Maintain EMS IV. Dressing intact. Good blood return noted. Site clean \T\ dry. Gauge \T\ bp site: 20 RFA. Flushed with 10 mL NS. 08:25 EKG done, by ED staff, reviewed by Alejandro Hathaway DO. ph 08:32 Lydia Steve, RN is Primary Nurse. ph 08:45 XRAY Chest (1 view) In Process Unspecified. EDMS 09:42 No provider procedures requiring assistance completed. ph 10:54 Richard Snow MD is Hospitalizing Provider. ms3 11:35 CT Head Brain wo Cont In Process Unspecified. EDMS 13:41 Patient admitted, IV remains in place. ph Administered Medications: 11:07 Drug: Rocephin IV 1 grams IV at calculated rate once; Given slow IV push per pharmacy ph instructions Route: IV; Rate: calculated rate; Site: right forearm; 11:37 Follow up: Response: No adverse reaction; IV Status: Completed infusion ph 11:40 Drug: Ondansetron IVP 4 mg IVP once; over 2 minutes Route: IVP; Site: right forearm; ph 12:46 Follow up: Response: No adverse reaction; Nausea is decreased ph Medication: 09:42 VIS not applicable for this client. ph Outcome: 10:55 Decision to Hospitalize by Provider. ms3 13:40 Admitted to Med/surg accompanied by tech, family with patient, via stretcher, ph 13:40 Condition: good 13:40 Instructed on the need for admit, 13:46 Patient left the ED. ph Signatures: Dispatcher [employer] EDMS Lydia Steve, RN RN ph Tyorne Godinez RN RN Alejandro Cobos DO DO ms3
--- NOTE | 2024-08-27 10:56 | EDPHYS ---
Physician Documentation [facility] Name: Christal Mosley Age: 79 yrs Sex: Female : 1945 Arrival Date: 08/27/2024 Time: 08:15 Bed 2 Private MD: ED Physician Alejandro Hathaway HPI: 08/27 09:07 This 79 yrs old Female presents to ER via EMS with complaints of MALAISE. ms3 09:07 79-year-old female with past medical history of hypertension presents to the emergency ms3 department for not feeling well and generalized weakness. EMS notes patient had rectal temperature of 95 F. Patient denies fevers, chills, cough, shortness of breath, chest pain. Historical: - Allergies: 08:21 PENICILLINS; bp - Home Meds: 08:21 Diltiazem Oral [Active]; Lovastatin Oral [Active]; bp - PMHx: 08:21 Hypertentension; bp - Immunization history:: Adult Immunizations up to date. - Infectious Disease History:: Denies. - Social history:: Smoking status: Patient denies any tobacco usage or history of. ROS: 09:07 Cardiovascular: Negative for chest pain, and palpitations. Respiratory: Negative for ms3 shortness of breath, cough, wheezing, and pleuritic chest pain, Abdomen/GI: Negative for abdominal pain, nausea, vomiting, diarrhea, and constipation, MS/Extremity: Negative for injury and deformity, Skin: Negative for injury, rash, and discoloration, 09:07 Constitutional: Positive for malaise, Exam: 09:07 Constitutional: This is a well developed, well nourished patient who is awake, alert, ms3 and in no acute distress. Cardiovascular: Regular rate and rhythm with a normal S1 and S2. No gallops, murmurs, or rubs. Normal PMI, no JVD. No pulse deficits. Respiratory: Lungs have equal breath sounds bilaterally, clear to auscultation and percussion. No rales, rhonchi or wheezes noted. No increased work of breathing, no retractions or nasal flaring. Abdomen/GI: Soft, non-tender, with normal bowel sounds. No distension or tympany. No guarding or rebound. No evidence of tenderness throughout. Skin: Warm, dry with normal turgor. Normal color with no rashes, no lesions, and no evidence of cellulitis. MS/ Extremity: Pulses equal, no cyanosis. Neurovascular intact. Full, normal range of motion. 09:54 ECG was reviewed by the Attending Physician. ms3 Vital Signs: 08:20 BP 110 / 60; Pulse 58; Resp 15; Temp 95.5; Pulse Ox 99% on R/A; bp 08:32 BP 110 / 70; Pulse 57; Resp 18; Temp 97.5(A); Pulse Ox 100% on R/A; Weight 48.08 kg; ph Height 5 ft. 4 in. ; 09:41 BP 123 / 57; Pulse 52; Resp 18; Pulse Ox 100% on R/A; ph 12:32 BP 130 / 62; Pulse 61; Resp 18; Pulse Ox 99% on R/A; ph 13:40 BP 120 / 57; Pulse 63; Resp 18; Temp 97.4; Pulse Ox 100% on R/A; ph 08:32 Body Mass Index 18.19 (48.08 kg, 162.56 cm) ph MDM: 08:20 Medical Screening Exam initiated ms3 09:07 Differential Diagnosis Electrolyte abnormality versus anemia versus MO. ms3 11:14 Data reviewed: vital signs, nurses notes, lab test result(s), EKG, radiologic studies, ms3 and as a result, I will admit patient. Consideration of Admission/Observation Patient was admitted/placed on observation. Management of patient was discussed with the following: Hospitalist: Dr. Fernandezould like blood cultures and patient to be placed on Rocephin if she does not have an anaphylactic reaction to penicillin. I considered the following discharge prescriptions or medication management in the emergency department Medications were administered in the Emergency Department. See MAR. Independent interpretation of the following test(s) in the Emergency Department EKG: See my EKG interpretation above. Historians other than the Patient: EMS: [facility]. Counseling: I had a detailed discussion with the patient and/or guardian regarding the historical points, exam findings, and any diagnostic results supporting the discharge/admit diagnosis, lab results, radiology results, the need for further work-up and treatment in the hospital. ED course: Discussed case Dr. Snow and he understands and agrees with plan. All questions were answered.. 08/27 08:21 Order name: Basic Metabolic Panel; Complete Time: 10:32 ms3 08/27 08:22 Order name: CBC with Diff; Complete Time: 09:00 ms3 08/27 08:22 Order name: LFT's; Complete Time: 10:32 ms3 08/27 08:22 Order name: Magnesium; Complete Time: 10:32 ms3 08/27 08:22 Order name: PT-INR; Complete Time: 10:32 ms3 08/27 08:22 Order name: Troponin HS; Complete Time: 10:32 ms3 08/27 08:22 Order name: Urinalysis w/ reflexes; Complete Time: 10:32 ms3 08/27 10:56 Order name: Blood Culture Adult (2) ms3 08/27 08:22 Order name: XRAY Chest (1 view); Complete Time: 10:32 ms3 08/27 11:18 Order name: CT Head Brain wo Cont; Complete Time: 12:16 ms3 08/27 08:22 Order name: Cardiac monitoring; Complete Time: 08:33 ms3 08/27 08:22 Order name: EKG - Nurse/Tech; Complete Time: 08:24 ms3 08/27 08:22 Order name: IV Saline Lock; Complete Time: 08:24 ms3 08/27 08:22 Order name: Labs collected and sent; Complete Time: 08:33 ms3 08/27 08:22 Order name: O2 Per Protocol; Complete Time: 08:24 ms3 08/27 08:22 Order name: O2 Sat Monitoring; Complete Time: 08:24 ms3 EC:54 Rate is 63 beats/min. Rhythm is regular. QRS [place] is Normal. AL interval is normal. QRS ms3 interval is normal. Clinical impression: Normal ECG. Interpreted by me. Reviewed by me. Administered Medications: 11:07 Drug: Rocephin IV 1 grams IV at calculated rate once; Given slow IV push per pharmacy ph instructions Route: IV; Rate: calculated rate; Site: right forearm; 11:37 Follow up: Response: No adverse reaction; IV Status: Completed infusion ph 11:40 Drug: Ondansetron IVP 4 mg IVP once; over 2 minutes Route: IVP; Site: right forearm; ph 12:46 Follow up: Response: No adverse reaction; Nausea is decreased ph Disposition Summary: 08/27/24 10:55 Hospitalization Ordered Notes: Hospitalization Status: Observation ms3 Provider: Richard Snow ms3 Location: Telemetry/MedSurg (observation) ms3 Condition: Stable ms3 Problem: new ms3 Symptoms: are unchanged ms3 Bed/Room Type: Standard ms3 Room Assignment: 214(08/27/24 12:43) bc6 Diagnosis - Other fatigue ms3 - Hypothermia ms3 - Hypokalemia ms3 Forms: - Medication Reconciliation Form ms3 - SBAR form ms3 - Leadership Thank You Letter ms3 Signatures: Dispatcher [employer] EDMS Doug Espinosa, MEDICAID BILLER-C MEDICAID BILLER-Cla1 Lydia Steve, RN RN ph Tyrone Godinez, RN RN bp Alejandro Hathaway DO DO ms3 Karen Desai bc6 Corrections: (The following items were deleted from the chart) 08:22 08:22 BASIC METABOLIC PANEL+C.LAB.BRZ ordered. EDMS EDMS 08:22 08:22 CBC+H.LAB.BRZ ordered. EDMS EDMS 08:22 08:22 HEPATIC FUNCTION+C.LAB.BRZ ordered. EDMS EDMS 08:22 08:22 MAGNESIUM+C.LAB.BRZ ordered. EDMS EDMS 08:22 08:22 PROTIME (+INR)+COAG.LAB.BRZ ordered. EDMS EDMS 08:22 08:22 Troponin High Sensitivity+C.LAB.BRZ ordered. EDMS EDMS 08:22 08:22 Urinalysis+U.LAB.BRZ ordered. EDMS EDMS 08:22 08:22 Chest Single View+RAD.RAD.BRZ ordered. EDMS EDMS 10:56 10:56 BLOOD CULTURE*+BA.LAB.BRZ ordered. EDMS EDMS 11:19 11:19 Head Brain Wo Cont+CT.RAD.BRZ ordered. EDMS EDMS 12:43 10:55 ms3 bc6
[2024-08-27] MEDS ORDERED: NA CHLORIDE 0.9% 50 ML ONE (11:00)
[2024-08-27] MEDS ORDERED: CEFTRIAXONE 1000 MG/VIAL ONE (11:00)
[2024-08-27] MEDS ORDERED: ONDANSETRON 4 MG/2 ML VIAL ONE (11:21)
--- NOTE | 2024-08-27 12:12 | RAD REPORT ---
EXAM: CT Head Brain Wo Cont HISTORY: headache, fatigue, nausea COMPARISON: None TECHNIQUE: Multiple contiguous axial images were obtained for a CT of the brain without contrast. Sag ittal and coronal reformats were performed. One or more of the following dose reduction techniques were used: Automated exposure control, adjus tment of the mA and kV according to patient size, and iterative reconstruction. Unless otherwise specified, incidental findings do not require dedicated imaging follow-up. FINDINGS: No evidence of hydrocephalus, intracranial hemorrhage, or extra-axial fluid collection. Mild brain atrophy with mild periventricular and deep white matter chronic microvascular ischemic ch anges present. Nonspecific right basal ganglia focus of mineralization. The calvarium is intact. The visualized paranasal sinuses and mastoid air cells are essentially clear . IMPRESSION: No evidence of acute intracranial abnormality.
[2024-08-27 14:59] VITALS: BMI 18.1
[2024-08-27] MEDS ORDERED: ONDANSETRON 4 MG/2 ML VIAL IV PRN (15:16)
--- NOTE | 2024-08-27 19:52 | HP ---
Date of Admission: 08/27/2024 Chief Complaint: Not feeling good. History Of Present Illness: This is a 79-year-old very pleasant female patient, who was doing fine i n her normal usual state of health, and yesterday she had her routine dental appointment for teeth cl eaning which she gets done about every 6 months. She has not had any recent febrile illness. No cou gh, cold, congestion, sore throat, fever, chills. No abdominal pain, nausea, vomiting, constipation, or diarrhea. No urinary complaints. The patient reports that last night when she felt like she nee ded to go to the bathroom, she woke up from her bed and went to the bathroom, but at that time, she r eally felt little lightheaded. The patient felt extremely weak and no specific complaints, but just keeps telling me that she was really feeling bad, but no other specific complaints. After she urinat ed as she started to walk back to the bedroom, she felt so bad that she decided to lie down on the ba throom floor and after a while staying on the bathroom floor, she decided to get up with support of b athroom cabinets and somehow managed to get back into the bed, but she was not feeling good at all an d was moaning and her woke up, subsequently decided to bring her to emergency room and after she was evaluated in ER, I was contacted requesting admission to the hospital. The patient was hypot hermic when she first came in, temperature was 95 degrees Fahrenheit, but subsequently her temperatur e has stayed normal. When I saw her this evening, she was lying in bed, not in distress. Allergies: TO PENICILLIN. Medications: Aspirin 81 mg daily, Prolia injection every 6 months, Cardizem CD 240 mg capsules daily , losartan 25 mg daily, lovastatin 20 mg daily in evening, mirtazapine 15 mg daily at bedtime, and ri vastigmine patch 9.5 mg daily. Review of Systems: Constitutional: As mentioned above. PRICING STRATEGIST: As mentioned above. All other systems reviewed and negative. Past Medical History: Significant for impaired fasting glucose, hypertension, hyperlipidemia, bilate ral carotid artery stenosis, diverticulosis, osteoporosis. Past Surgical History: Tonsillectomy and hysterectomy. Family History: Father , had lung cancer and alcoholism. Mother had hypertension, rheumatoid ar thritis, and systemic lupus erythematosus. Social History: Negative for smoking and alcohol use. Physical Examination: Vital Signs: Last temperature this evening 97.9, pulse 65, respiratory rate 20, blood pressure 121/5 8, oxygen saturation 98% on room air. Height 5 feet 4 inches, weight 106 pounds. General: Awake, alert, oriented, not in distress. HEENT: Head atraumatic, normocephalic. Conjunctivae nonerythematous. Sclerae white. Mouth, no thr ush or edema noted. Ears/Nose, no mass, lesion, discharge noted. Neck: Supple. No JVD, lymph nodes, bruit, thyromegaly noted. Lungs: Bilateral good equal air entry. Clear to auscultation. No rhonchi. No rales. Heart: Normal heart sounds, no murmur or gallop. Abdomen: Soft, bowel sounds normal. No guarding, rigidity, tenderness, mass, hepatosplenomegaly, dis tention, or bruit noted. Extremities: No leg edema. No calf tenderness. Skin: No rash, ulcer, cellulitis. Lymphatics: No lymph node enlargement in neck, supraclavicular, infraclavicular region. Neuro: No focal neurological deficit. Chest: Unremarkable. External Genitalia: Deferred. Rectal: Deferred. Laboratory Data: WBC 3.5, hemoglobin 12.3, platelets 179. Sodium 139, potassium 3.4, chloride 109, bicarb 22, BUN 19, creatinine 0.85, glucose 138. Liver function tests unremarkable. Troponin 23.9. Urinalysis, 1+ ketones, otherwise negative. Chest x-ray, no acute cardiopulmonary changes. CAT sca n of the head, no acute intracranial changes. Impression: 1. Hypothermia. 2. Malaise. 3. Rule out sepsis. 4. Leukocytopenia. 5. Hypertension. 6. Hyperlipidemia. 7. Bilateral carotid artery stenosis. 8. Diverticulosis. 9. Osteoporosis. 10. Impaired fasting glucose. Plan: We will go ahead and admit the patient to hospital for further evaluation and management of th is problem. The patient is appropriate for observation and 2 sets of blood cultures were ordered to be done in the emergency room after I was contacted and empiric antibiotic, ceftriaxone was started. We will monitor her overnight. I will see her tomorrow morning for followup. There is no obvious s igns of any infection anywhere that I can detect on basis of history and physical exam. We will see what the blood culture shows. Meanwhile, we will see her tomorrow morning for followup. For blood p ressure, we will continue antihypertensive medication per order. Monitor blood pressure. No need fo r further intervention. For hyperlipidemia, continue her statin therapy. No need for further interv ention at this time. Total time spent 65 minutes that includes review of last office visit record from 06/05/2024, communi cation with emergency room physician, review of emergency room visit record, and performing today's e valuation and management. Plan of treatment discussed with her. I will see her tomorrow for followsalomón newton ACA/FARHAN Voice ID: [id number]
[2024-08-27 20:48] VITALS: O2SAT 96
[2024-08-27] MEDS: CEFTRIAXONE 1,000 MG in NA CHLORIDE 0.9% 50 ML IVPB SCH (22:28)
[2024-08-27] MEDS: ACETAMINOPHEN 500 MG TAB PO PRN (22:40)
[2024-08-28 05:12] LABS: Absolute Lymphocytes (CBC) 1.1 K/uL (0.7-4.9); Absolute Monocytes 0.5 K/uL (0.1-1.3); Absolute Neutrophil 3.6 K/uL (1.8-8.0); Basophils % 0.5 % (0-1.3); Eosinophils % 0.3 % (0-4.4); Hematocrit 33.9 % (36.0-45.0); Hemoglobin 11.8 g/dL (12.0-15.0); Lymphocytes % 20.9 % (15.3-44.8); MCH 32.2 pg (27.0-35.0); MCHC 34.7 g/dL (32.0-36.0); MCV 92.9 fL (80-100); MPV 7.2 fL (7.6-11.3); Monocytes % 9.4 % (3.3-12.3); Neutrophils % 68.9 % (41.7-73.7); Platelets 187 thou/uL (152-406); RBC Red Blood Cell Count 3.65 M/uL (3.86-4.86); Red Cell Distribution Width 13.2 % (12.1-15.2)
[2024-08-28 05:30] LABS: Albumin 3.2 g/dL (3.4-5.0); Albumin/Globulin Ratio 1.1 (1.1-1.8); Anion Gap 5.9 mEq/L (5.0-15.0); Bilirubin Total 0.3 mg/dL (0.2-1.0); Globulin 2.8 g/dL (2.3-3.5); Potassium 3.9 mEq/L (3.5-5.1)
[2024-08-28 08:43] VITALS: BP 122/60; TEMP 98
--- NOTE | 2024-08-28 12:39 | EKG ---
Test Date: 2024-08-27 Test Time: 08:35:44 Trawl Net Maker: PH MEASUREMENT RESULTS: Intervals: Rate: 63 WA: 192 QRSD: 78 QT: 480 QTc: 491 [place]: P: 76 WA: 192 QRS: 67 T: 81 INTERPRETIVE STATEMENTS: Normal sinus rhythm Prolonged QT Abnormal ECG Compared to ECG 11/26/2020 23:57:31 Prolonged QT interval now present Electronically Signed On 08-28-24 12:36:39 CDT by Kem Sutton
--- NOTE | 2024-08-29 06:21 | DS ---
Date of Discharge: 08/28/2024 Disposition: Discharged to go home. Physical Examination: Vital Signs: Today this morning, temperature 98.4, pulse 63, respiratory rate 16, blood pressure was 96/54 and prior blood pressure was 115/57, oxygen saturation 98% on room air. HEENT: Unremarkable. Lungs: Clear to auscultation. Heart: Sounds normal. Abdomen: Soft. Bowel sounds normal. No guarding, rigidity, tenderness, distention. Extremities: No leg edema. Discharge Medications And Instructions: Continue all prior home medication except following changes: 1. Stop Cardizem. 2. Stop losartan. 3. Start levofloxacin 500 mg take 1 tablet by mouth daily for 1 week and prescription was sent to her pharmacy from office. 4. Follow up at my office next week on Monday, which is 09/02/2024. 5. The patient to check her blood pressure 2 times a day and once her systolic blood pressure gets up to 140 or higher, then the patient to restart her losartan 25 mg daily and all these instructions we re personally explained to her and treatment instructions given to her and her daughter who was also at bedside today. Laboratory Data: Yesterday upon admission, WBC 3.5, hemoglobin 12.3, platelets 179. Today, WBC 5.3, hemoglobin 11.8, platelets 187. For chemistry yesterday, sodium 139, potassium 3.4, chloride 109, b icarb 22, BUN 19, creatinine 0.85, glucose 138. Liver function tests unremarkable. Troponin 23.9. Today, sodium 139, potassium 3.9, chloride 110, bicarb 27, BUN 20, creatinine 0.78, glucose 103. Kristie er function tests unremarkable. Hospital Course: This is a 79-year-old pleasant female patient, who came into emergency room with co mplaints of not feeling good. Please see dictated H and P for more information. After the patient w as evaluated in emergency room, she was admitted to hospital for observation. The patient had hypoth ermia with temperature 95.5 degrees Fahrenheit upon arrival and subsequently her temperature througho ut the hospital stay was normal. She did not have any fever or hypothermia during this hospitalizati on. Blood pressure remained either normal or little bit on the lower side of the range and overall h er condition remained stable. Blood cultures 2 sets were done in emergency room. Empiric antibiotic , ceftriaxone was started in emergency room, which she has tolerated very well. So far, blood cultur e result is pending this morning and I have discussed with her and her daughter that we will continue to follow up on blood culture on outpatient basis. I would like to see her next week at office on M onday, but meanwhile, we will go ahead and use empiric antibiotic as prescribed for 1 week. Overnigh t, the patient's condition has improved significantly. This morning, she felt like she was back to er normal baseline and no complaints reported this morning, so the patient was discharged to go home in stable condition. Final Diagnoses: 1. Hypothermia. 2. Malaise. 3. Leukocytopenia. 4. Hypertension. 5. Hyperlipidemia. 6. Bilateral carotid artery stenosis. 7. Diverticulosis. 8. Osteoporosis. 9. Impaired fasting glucose. Total time spent 30 minutes. ANIBAL/MODL Voice ID: [id number] Report ID: [id number]
== END 2024-08-28 09:12 | disposition home or self-care (01) ==
LOC: ER 08:15 → 2ND 12:54
PROVIDERS: ADMIT Internal Medicine; ATTEND Internal Medicine
DX: T68.XXXA Hypothermia, initial encounter (principal); R73.01 Impaired fasting glucose; E87.6 Hypokalemia; D72.819 Decreased white blood cell count, unspecified; I10 Essential (primary) hypertension; R53.83 Other fatigue; E78.5 Hyperlipidemia, unspecified; I65.23 Occlusion and stenosis of bilateral carotid arteries; K57.90 Diverticulosis of intestine, part unspecified, without perforation or abscess without bleeding; M81.0 Age-related osteoporosis without current pathological fracture; Z88.0 Allergy status to penicillin
CPT/HCPCS: 96365; 93005; 87040 ×2; 85025 ×2; 80048; 36415; 83735; 85610; 80076; 81003; 84484; 80053; 70450; 71045; 96375; 99285; J2405; J0696 ×2; G0378